=== PATIENT | female | born 1960 | race Caucasian/White ===

== ENCOUNTER 2023-11-01 15:27 | Inpatient (IN) | payer MEDICARE, SELFPAY ==
--- NOTE | ~2023-11-01 | XR_ITS ---
EXAMINATION: XR CHEST CLINICAL INFORMATION: Severe cough COMPARISON: None available. TECHNIQUE: 2 views of the chest were obtained. FINDINGS: The lungs are well expanded. There is prominence of the interstitial markings. Question of slight increased opacity at the right lung base consistent with atelectasis and/or pneumonia. No pleural effusion. The cardiomediastinal silhouette is within normal limits. Calcification of the thoracic aorta is indicative of atherosclerotic disease. No acute osseous abnormality. Cortical defect in the left humeral head is noted possibly from prior dislocation. XR/XR chest 2V IMPRESSION: Right lower lobe atelectasis and/or pneumonia. Follow-up to resolution is suggested.
[2023-11-01 16:00] VITALS: BP 132/71; PULSE 76; RESP 18; TEMP 36.7; O2SAT 94
[2023-11-01 16:22] VITALS: BMI 28.4
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
--- NOTE | 2023-11-01 17:59 | P.CONHOSP_ITS ---
History of Present Illness Data of Consult Service Date: 11/01/23 Requesting physician: Keaton Bravo Primary Care Provider: Unknown Physician HPI Reason for consult: medical H&P 63-year-old female with history of hyperlipidemia, COPD, mood disorder, hypertension admitted to geriatric psychiatry consult placed hospitalist service for medical H&P. The patient arrives from [facility] in [place]. The patient reports a chronic cough with white sputum production but denies any sob, wheezing, chest pain. No increase in albuterol usage. Was admitted to [facility] several months ago after being found hypoxic to 87% on RA by pcp and was discharged on home O2. Reports since then has been feeling well. Continues smoking about 1 pack cigarettes per day, attributes this to increased stress. Does not want NRT while in the hospital. NO etoh or illicit drug use. Has no other complaints. Review of Systems Review of Systems: General: No fevers, malaise, unintentional weight loss HEENT: No blurred vision, diplopia. No sore throat, nasal congestion, rhinorrhea, sinus pain, ear pain Cardiovascular: No chest pain, palpitations, or leg edema Respiratory: +chronic cough. No shortness of breath, wheezing GI: No abdominal pain, nausea, vomiting, diarrhea, constipation, melena, hematochezia : No dysuria, hematuria, increased urinary frequency, decreased urinary output MSK: No myalgia, back pain Neuro: No headaches, weakness, paresthesias Skin: No rashes or lesions PMFSH Medical History Chronic hypoxemic respiratory failure Smoker HTN (hypertension) COPD (chronic obstructive pulmonary disease) Social History Household Members: Other Housing: Apartment Housing Other:: handicap access and elderly Do you presently have visiting nurse or other home services: Yes Patient Tobacco Use Status: Current everyday Tobacco user Tobacco use type: Cigarette Cigarette Packs Per Day: 1 Cigarettes Per Day: 20.0 Smoked in Last 30 Days: Yes Patient Interested in Nicotine Replacement: No Patient Given Instructions on How to Stop Smoking: Yes Date Education Initiated: 11/01/23 Second Hand Smoke Exposure: No Use of substances other than those prescribed or required for medical reasons: No Currently Displaying Signs/Symptoms of Drug Intoxication Withdrawal: No Any prior treatment program specific to substance use: No Have you been hit, kicked, punched, or otherwise hurt by someone within the past year? If so, by whom?: No Do you feel safe in your current relationship?: No Current Relationship Is there a partner from a previous relationship who is making you feel unsafe now?: No Are you made to feel afraid or neglected: No Advance Directives: No Advance Directives Information Provided: No Do you have thoughts of harming others: None Do you have a plan to hurt others: No Plan Recently lost weight without trying: No Eating poorly because of decreased appetite: No Nutrition Risks: No Nutritional Risk Patient : No : No Poor oral hygiene: No Meds Allergies Allergy/AdvReac Type Severity Reaction Status Date / Time amoxicillin Allergy Mild Diarrhea Verified 11/01/23 16:18 azithromycin Allergy Diarrhea Verified 11/01/23 16:19 propranolol Allergy Itching Verified 11/01/23 16:22 [email or web address] Allergy Itching Verified 11/01/23 16:22 Active Medications: Current Medications Acetaminophen (Acetaminophen 325 Mg Tablet) 650 mg PO Q6H PRN PRN Reason: Headache/Pain Mild Scale (1-3) Al Hydroxide/Mg Hydroxide (Magnesium Hydrox/Alum Hydrox 30 Ml Oral.Susp) 30 ml PO Q6H PRN PRN Reason: Heartburn/Nausea Magnesium Hydroxide (Milk Of Magnesia 30 Ml Oral.Susp) 30 ml PO DAILY PRN PRN Reason: Constipation Trazodone HCl (Trazodone Hcl 50 Mg Tablet) 50 mg PO BEDTIME MRX1 PRN PRN Reason: Insomnia Home Medications Medication Instructions Recorded Confirmed Last Taken Type aripiprazole 10 mg tablet (Abilify) 10 mg PO DAILY 11/01/23 11/01/23 Unknown History aspirin 81 mg tablet,delayed 81 mg PO DAILY 11/01/23 11/01/23 Unknown History release (Enteric Coated Aspirin) atorvastatin 10 mg tablet 10 mg PO DAILY 11/01/23 11/01/23 Unknown History budesonide 180 mcg/actuation 2 inh inhalation BID 11/01/23 11/01/23 Unknown History breath activated powder inhaler (Pulmicort Flexhaler) clonazepam 0.5 mg tablet 0.5 mg PO BID 11/01/23 11/01/23 Unknown History deutetrabenazine 6 mg PO DAILY 11/01/23 11/01/23 Unknown History fluphenazine HCl 10 mg tablet 20 mg PO BEDTIME 11/01/23 11/01/23 Unknown History ipratropium-albuterol 1 puff inhalation Q6-8H PRN 11/01/23 11/01/23 Unknown History Shortness Of Breath lacosamide 200 mg tablet 200 mg PO DAILY 11/01/23 11/01/23 Unknown History loratadine 10 mg tablet 10 mg PO DAILY PRN Allergy Symptoms 11/01/23 11/01/23 Unknown History melatonin 3 mg PO BEDTIME 11/01/23 11/01/23 Unknown History multivitamin 1 tab PO DAILY 11/01/23 11/01/23 Unknown History valsartan 80 mg tablet 80 mg PO DAILY 11/01/23 11/01/23 Unknown History venlafaxine 75 mg tablet 75 mg PO BID 11/01/23 11/01/23 Unknown History Physical Exam Vital Signs and Narrative: Vital Signs: Last Vital Signs Temp 98.1 F 11/01/23 16:00 Pulse 76 11/01/23 16:00 Resp 18 11/01/23 16:00 BP 132/71 11/01/23 16:00 Pulse Ox 94 11/01/23 16:00 O2 Del Method Room Air 11/01/23 16:00 BMI result Body Mass Index 28.4 Constitutional - Awake and Alert, No apparent distress Eyes - PERRLA, EOMI Cardiovascular - S1S2, RRR, No edema Respiratory - Normal lung expansion, Normal respiratory effort, No respiratory distress on 2L O2, CTA bilaterally Gastrointestinal - NT / ND; +BS; No rebound or guarding Extremities - no calf tenderness bilaterally, no swelling Musculoskeletal - Normal inspection, normal ROM Skin - Warm/Dry Neurological - Alert & oriented x3, CN II-XII in tact, 5/5 strength BUE and BLE Psychological - Appropriate affect Assessment and Plan (1) Routine medical exam: Status: Acute Plan 63-year-old female with history of hyperlipidemia, COPD on 2L supplemental O2 at baseline, mood disorder, hypertension admitted to geriatric psychiatry consult placed hospitalist service for medical H&P. #Schizophrenia/mood disorder -plan per psychiatry #HTN -bp reasonably controlled. continue valsartan #Chronic cough -cxr pending. Low suspicion for infectious etiology given chronicity of cough. Sputum production unchanged from baseline. Afebrile -guaifenesin prn #COPD with chronic hypoxemic respiratory failure -no acute exacerbation -continue maintenance inhalers, albuterol prn -continue 2L home O2 #HLD -continue statin Thank you for allowing me to participate in this consult. Signing off at this time. Please do not hesitate to call for further questions or for any acute medical issues that may arise
[2023-11-01 18:00] VITALS: BP 131/78; PULSE 69; RESP 17; TEMP 36.4; O2SAT 98
[2023-11-01] MEDS: Budesonide 180 MCG AER.POW.BA 2 PUFF INHALE (20:30)
[2023-11-01] MEDS: Melatonin 3 MG TABLET PO (20:36)
[2023-11-01] MEDS: Venlafaxine HCL 25 MG TABLET 75 MG PO (20:36)
[2023-11-01] MEDS: clonazePAM 0.5 MG TABLET PO (20:37)
[2023-11-01] MEDS: fluPHENAZine HCl 5 MG TABLET 20 MG PO (21:26)
[2023-11-02 06:00] VITALS: BP 132/68; PULSE 73; RESP 14; TEMP 36.4; O2SAT 97
[2023-11-02 07:00] VITALS: BMI 29.2
[2023-11-02] MEDS: Budesonide 180 MCG AER.POW.BA 2 PUFF INHALE ×2 (08:18→20:55)
[2023-11-02] MEDS: Venlafaxine HCL 25 MG TABLET 75 MG PO (08:18)
[2023-11-02] MEDS: Multivitamin TABLET 1 TAB PO (08:19)
[2023-11-02] MEDS: clonazePAM 0.5 MG TABLET PO ×2 (08:19→20:57)
[2023-11-02] MEDS: Aspirin Enteric Coated 81 MG TABLET.DR PO (08:19)
[2023-11-02] MEDS: Valsartan 80 MG TABLET PO (08:19)
[2023-11-02] MEDS: ARIPiprazole 10 MG TABLET PO (08:19)
[2023-11-02] MEDS: Atorvastatin Calcium 10 MG TABLET PO (08:19)
[2023-11-02 09:02] LABS: Estimated Average Glucose 111 mg/dL; Hemoglobin A1c % 5.5 % (<6.0)
[2023-11-02 09:15] LABS: Alanine Aminotransferase 12 U/L (0-31); Albumin Level 3.5 g/dL (3.5-5.0); Alkaline Phosphatase 91 U/L (39-117); Anion Gap 11 (12-20); Aspartate Amino Transferase 19 U/L (5-31); Bilirubin Total 0.2 mg/dL (0.0-1.0); Blood Urea Nitrogen 16 mg/dL (9-16); Calcium 9.8 mg/dL (8.4-10.2); Carbon Dioxide 37 mmol/L (22-29); Chloride 99 mmol/L (96-108); Cholesterol 168 mg/dL (<200); Creatinine Clr Calc Pharmacy 58.1; Estimated Glomerular Filt Rate > 60; Glucose Fasting 149 mg/dL (60-99); HDL Cholesterol 59 mg/dL (>40); LDL Cholesterol Calculated 97 mg/dL (<100); Potassium 4.9 mmol/L (3.3-5.1); Sodium 142 mmol/L (135-145); Total Protein 6.7 g/dL (6.5-8.0); Triglycerides 63 mg/dL (<150)
[2023-11-02 09:28] LABS: Thyroid Stimulating Hormone 1.21 uIU/mL (0.32-4.0)
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
[2023-11-02 12:55] LABS: Folate 9.7 ng/mL (> or = 4.0); Vitamin B12 588 pg/mL (200-900)
[2023-11-02 13:00] VITALS: BMI 29.2
[2023-11-02 18:00] VITALS: BP 121/72; PULSE 70; RESP 18; TEMP 36.4; O2SAT 98
[2023-11-02] MEDS: Melatonin 3 MG TABLET PO (20:56)
[2023-11-02] MEDS: fluPHENAZine HCl 5 MG TABLET 20 MG PO (20:56)
[2023-11-03 08:00] VITALS: BP 133/71; PULSE 83; RESP 18; TEMP 36.7; O2SAT 94
[2023-11-03] MEDS: Budesonide 180 MCG AER.POW.BA 2 PUFF INHALE ×2 (08:35→21:03)
[2023-11-03] MEDS: Multivitamin TABLET 1 TAB PO (08:36)
[2023-11-03] MEDS: Lacosamide 100 MG TABLET 200 MG PO (08:36)
[2023-11-03] MEDS: ARIPiprazole 10 MG TABLET PO (08:36)
[2023-11-03] MEDS: Atorvastatin Calcium 10 MG TABLET PO (08:36)
[2023-11-03] MEDS: Valsartan 80 MG TABLET PO (08:36)
[2023-11-03] MEDS: Venlafaxine HCL 25 MG TABLET 75 MG PO (08:36)
[2023-11-03] MEDS: Aspirin Enteric Coated 81 MG TABLET.DR PO (08:36)
[2023-11-03] MEDS: clonazePAM 0.5 MG TABLET PO ×2 (08:37→21:06)
--- NOTE | 2023-11-03 16:42 | HO.PSYCHPN ---
Subjective Subjective Date of Service: 11/03/23 Reason For Visit: Schizophrenia Subjective Notes: Conditional Voluntary Interim History: Pt reports feeling well. She reports she slept through the night. She reports she has ont heard mother nature as much. She continues to talk about her neighbors, but again states she is not as worried because mother nature is protecting her along with God. No disruptive behaviors. Taking medications as prescribed. Medication Compliance: Yes Review of Systems Review of Systems Pt denies chest pain. She is on oxygen, no SOB or wheezing Denies constipation or loose stools. No abdominal pain. No changes in vision. Mental Status Exam Mental Status Exam Narrative: Appearance: wearing casual clothing, good hygiene, in NAD Behavior: cooperative and friendly Psychomotor: no agitation or retardation noted. resting tremor right hand more pronounce, no overt perioral movements. Speech: clear, normal rate/rhythm/volume, spontaneous TP: tangential at times TC: concern about her neighbors trying to hurt her but with the reassurance that mother nature protects her. Mood: good Affect:congruent, brightens up at times SI: denies HI: none VH/AH: hearing voices of mother nature Delusions: paranoid delusions Insight/judgment: impaired x2 Memory/cog: alert, oriented x 3. Diagnostics Vital Signs (24Hr): Vital Signs - 24 hr 11/02/23 18:00 Temperature 97.5 F Pulse Rate 70 Respiratory Rate 18 Blood Pressure 121/72 Pulse Oximetry 98 Oxygen Delivery Method Room Air BMI result Body Mass Index 29.2 Labs 11/02/23 08:48 Labs: Laboratory Results - last 48 hr 11/02/23 08:48 Sodium 142 Potassium 4.9 Chloride 99 Carbon Dioxide 37 H Anion Gap 11 L BUN 16 Creatinine 0.76 Estim Creat Clear Calc 58.1 Estimated GFR > 60 Fasting Glucose 149 H Estimat Average Glucose 111 Hemoglobin A1c % 5.5 Calcium 9.8 Total Bilirubin 0.2 AST 19 ALT 12 Alkaline Phosphatase 91 Total Protein 6.7 Albumin 3.5 Triglycerides 63 Cholesterol 168 LDL Cholesterol, Calc 97 HDL Cholesterol 59 Vitamin B12 588 Folate 9.7 TSH 1.21 Imaging Radiology Impressions: ITS Impressions Chest X-Ray 11/01/23 18:22 IMPRESSION: Right lower lobe atelectasis and/or pneumonia. Follow-up to resolution is suggested. Medications Medications Current Medications Acetaminophen (Acetaminophen 325 Mg Tablet) 650 mg PO Q6H PRN PRN Reason: Headache/Pain Mild Scale (1-3) Al Hydroxide/Mg Hydroxide (Magnesium Hydrox/Alum Hydrox 30 Ml Oral.Susp) 30 ml PO Q6H PRN PRN Reason: Heartburn/Nausea Albuterol/Ipratropium (Albuterol/Iprat 2.5/0.5mg 3 Ml Ampul.Neb) 3 ml INHALE Q6H PRN PRN Reason: shortness of breath Aripiprazole (Aripiprazole 10 Mg Tablet) 10 mg PO DAILY [facility] Last Admin: 11/03/23 08:36 Dose: 10 mg Aspirin (Aspirin Enteric Coated 81 Mg Tablet.Dr) 81 mg PO DAILY [facility] Last Admin: 11/03/23 08:36 Dose: 81 mg Atorvastatin Calcium (Atorvastatin Calcium 10 Mg Tablet) 10 mg PO DAILY [facility] Last Admin: 11/03/23 08:36 Dose: 10 mg Budesonide (Budesonide 180 Mcg Aer.Pow.Ba) 2 puff INHALE RBID [facility] Last Admin: 11/03/23 08:35 Dose: 2 puff Clonazepam (Clonazepam 0.5 Mg Tablet) 0.5 mg PO BID [facility] Last Admin: 11/03/23 08:37 Dose: 0.5 mg Fluphenazine HCl (Fluphenazine Hcl 5 Mg Tablet) 20 mg PO BEDTIME [facility] Last Admin: 11/02/23 20:56 Dose: 20 mg Lacosamide (Lacosamide 100 Mg Tablet) 200 mg PO DAILY [facility] Last Admin: 11/03/23 08:36 Dose: 200 mg Loratadine (Loratadine 10 Mg Tablet) 10 mg PO DAILY PRN PRN Reason: allergy sx Magnesium Hydroxide (Milk Of Magnesia 30 Ml Oral.Susp) 30 ml PO DAILY PRN PRN Reason: Constipation Melatonin (Melatonin 3 Mg Tablet) 3 mg PO BEDTIME [facility] Last Admin: 11/02/23 20:56 Dose: 3 mg Multivitamins/Vitamin C (Multivitamin Tablet) 1 tab PO DAILY [facility] Last Admin: 11/03/23 08:36 Dose: 1 tab Non-Formulary Medication (Deutetrabenazine) 6 mg PO DAILY [facility] Trazodone HCl (Trazodone Hcl 50 Mg Tablet) 50 mg PO BEDTIME MRX1 PRN PRN Reason: Insomnia Valsartan (Valsartan 80 Mg Tablet) 80 mg PO DAILY [facility]; Protocol Last Admin: 11/03/23 08:36 Dose: 80 mg Venlafaxine HCl (Venlafaxine Hcl 25 Mg Tablet) 75 mg PO DAILY [facility] Last Admin: 11/03/23 08:36 Dose: 75 mg Allergies Allergies Allergy/AdvReac Type Severity Reaction Status Date / Time amoxicillin Allergy Mild Diarrhea Verified 11/01/23 16:18 azithromycin Allergy Diarrhea Verified 11/01/23 16:19 propranolol Allergy Itching Verified 11/01/23 16:22 [email or web address] Allergy Itching Verified 11/01/23 16:22 Assessment & Plan Assessment & Plan (1) Schizophrenia, paranoid: Status: Acute Code(s): F20.0 - Paranoid schizophrenia Plan Ms. Jimenez is a 63 year-old woman with hx of schizophrenia who was brought via EMS to [facility] due to increase paranoid delusions in the past few months. She has not been aggressive nor suicidal. According to [facility] she takes medications consistently but not connected with psychiatrist as she stopped seeing her as pt reports psychiatrist did not help her stop smoking. She was recently started on venlafaxine by her PCP, who is also prescribing prolixin and abilify. We discussed tapering off venlafaxine as it worsens psychosis and delusions. Continue prolixin and abilify. PLAN 1. Taper off venlafaxine- currently on 75mg po daily, will decrease in 3-4 days to 37.5mg po 2-3 days, then stop. 2. continue prolixin 20mg po daily- may split dose in two. 3. pending collateral information. Reason for continued inpatient stay Substantial Risk for: inability to function Time Spent With Patient Time: Total time managing care of this patient today ____ minutes.
[2023-11-03 18:00] VITALS: BP 126/65; PULSE 74; RESP 18; TEMP 36.2; O2SAT 97
[2023-11-03] MEDS: Melatonin 3 MG TABLET PO (21:06)
[2023-11-03] MEDS: fluPHENAZine HCl 5 MG TABLET 20 MG PO (21:06)
[2023-11-03] MEDS: traZODone HCL 50 MG TABLET PO (21:07)
[2023-11-04 08:56] VITALS: BP 116/59; PULSE 62; RESP 17; O2SAT 93
[2023-11-04] MEDS: Lacosamide 100 MG TABLET 200 MG PO (09:23)
[2023-11-04] MEDS: Aspirin Enteric Coated 81 MG TABLET.DR PO (09:23)
[2023-11-04] MEDS: Valsartan 80 MG TABLET PO (09:23)
[2023-11-04] MEDS: Atorvastatin Calcium 10 MG TABLET PO (09:23)
[2023-11-04] MEDS: Multivitamin TABLET 1 TAB PO (09:23)
[2023-11-04] MEDS: clonazePAM 0.5 MG TABLET PO (09:23)
[2023-11-04] MEDS: Venlafaxine HCL 25 MG TABLET 75 MG PO (09:24)
[2023-11-04] MEDS: ARIPiprazole 10 MG TABLET PO (09:24)
[2023-11-04] MEDS: Budesonide 180 MCG AER.POW.BA 2 PUFF INHALE ×2 (09:28→21:01)
--- NOTE | 2023-11-04 10:07 | HO.PSYCHPN ---
Subjective Subjective Date of Service: 11/04/23 Reason For Visit: Schizophrenia Subjective Notes: Conditional Voluntary Interim History: Pt has been sleeping through the night. She takes medications as prescribed. She reports not hearing mother nature as much which is the voice that typically will have paranoid delusions. She reports feeling safe here. She had chest XR on day of admission due to ongoing cough. Chest XR showed atelectasis or pneumonia->correlating clinically she is is afebrile, cough has significantly decrease and seems more chronic, no leukocytosis. O2sat stable on 2NC at baseline. scheduled mucinex and encourage fluids, may benefit from incentive spirometry. Review of Systems Review of Systems General: No fevers, malaise, unintentional weight loss HEENT: No blurred vision, diplopia. No sore throat, nasal congestion, rhinorrhea, sinus pain, ear pain Cardiovascular: No chest pain, palpitations, or leg edema Respiratory: +chronic cough. No shortness of breath, wheezing GI: No abdominal pain, nausea, vomiting, diarrhea, constipation, melena, hematochezia : No dysuria, hematuria, increased urinary frequency, decreased urinary output MSK: No myalgia, back pain Neuro: No headaches, weakness, paresthesias Skin: No rashes or lesions Mental Status Exam Mental Status Exam Narrative: Appearance: wearing casual clothing, good hygiene, in NAD Behavior: cooperative and friendly Psychomotor: no agitation or retardation noted. resting tremor right hand more pronounce, no overt perioral movements. Speech: clear, normal rate/rhythm/volume, spontaneous TP: tangential at times TC: concern about her neighbors trying to hurt her but with the reassurance that mother nature protects her. Mood: good Affect:congruent, brightens up at times SI: denies HI: none VH/AH: hearing voices of mother nature Delusions: paranoid delusions Insight/judgment: impaired x2 Memory/cog: alert, oriented x 3. Diagnostics Vital Signs (24Hr): Vital Signs - 24 hr 11/03/23 18:00 11/04/23 08:56 Temperature 97.1 F Pulse Rate 74 62 Respiratory Rate 18 17 Blood Pressure 126/65 116/59 L Pulse Oximetry 97 93 Oxygen Delivery Method Room Air Nasal Cannula BMI result Body Mass Index 29.2 Labs 11/02/23 08:48 Labs: Laboratory Results - last 48 hr 11/02/23 08:48 Vitamin B12 588 Folate 9.7 Imaging Radiology Impressions: ITS Impressions Chest X-Ray 11/01/23 18:22 IMPRESSION: Right lower lobe atelectasis and/or pneumonia. Follow-up to resolution is suggested. Medications Medications Current Medications Acetaminophen (Acetaminophen 325 Mg Tablet) 650 mg PO Q6H PRN PRN Reason: Headache/Pain Mild Scale (1-3) Al Hydroxide/Mg Hydroxide (Magnesium Hydrox/Alum Hydrox 30 Ml Oral.Susp) 30 ml PO Q6H PRN PRN Reason: Heartburn/Nausea Albuterol/Ipratropium (Albuterol/Iprat 2.5/0.5mg 3 Ml Ampul.Neb) 3 ml INHALE Q6H PRN PRN Reason: shortness of breath Aripiprazole (Aripiprazole 10 Mg Tablet) 10 mg PO DAILY [facility] Last Admin: 11/04/23 09:24 Dose: 10 mg Aspirin (Aspirin Enteric Coated 81 Mg Tablet.) 81 mg PO DAILY [facility] Last Admin: 11/04/23 09:23 Dose: 81 mg Atorvastatin Calcium (Atorvastatin Calcium 10 Mg Tablet) 10 mg PO DAILY [facility] Last Admin: 11/04/23 09:23 Dose: 10 mg Budesonide (Budesonide 180 Mcg Aer.Pow.Ba) 2 puff INHALE RBID [facility] Last Admin: 11/04/23 09:28 Dose: 2 puff Clonazepam (Clonazepam 0.5 Mg Tablet) 0.5 mg PO BID [facility] Last Admin: 11/04/23 09:23 Dose: 0.5 mg Fluphenazine HCl (Fluphenazine Hcl 5 Mg Tablet) 20 mg PO BEDTIME [facility] Last Admin: 11/03/23 21:06 Dose: 20 mg Lacosamide (Lacosamide 100 Mg Tablet) 200 mg PO DAILY [facility] Last Admin: 11/04/23 09:23 Dose: 200 mg Loratadine (Loratadine 10 Mg Tablet) 10 mg PO DAILY PRN PRN Reason: allergy sx Magnesium Hydroxide (Milk Of Magnesia 30 Ml Oral.Susp) 30 ml PO DAILY PRN PRN Reason: Constipation Melatonin (Melatonin 3 Mg Tablet) 3 mg PO BEDTIME [facility] Last Admin: 11/03/23 21:06 Dose: 3 mg Multivitamins/Vitamin C (Multivitamin Tablet) 1 tab PO DAILY [facility] Last Admin: 11/04/23 09:23 Dose: 1 tab Non-Formulary Medication (Deutetrabenazine) 6 mg PO DAILY [facility] Trazodone HCl (Trazodone Hcl 50 Mg Tablet) 50 mg PO BEDTIME MRX1 PRN PRN Reason: Insomnia Last Admin: 11/03/23 21:07 Dose: 50 mg Valsartan (Valsartan 80 Mg Tablet) 80 mg PO DAILY [facility]; Protocol Last Admin: 11/04/23 09:23 Dose: 80 mg Venlafaxine HCl (Venlafaxine Hcl 25 Mg Tablet) 75 mg PO DAILY [facility] Last Admin: 11/04/23 09:24 Dose: 75 mg Allergies Allergies Allergy/AdvReac Type Severity Reaction Status Date / Time amoxicillin Allergy Mild Diarrhea Verified 11/01/23 16:18 azithromycin Allergy Diarrhea Verified 11/01/23 16:19 propranolol Allergy Itching Verified 11/01/23 16:22 [email or web address] Allergy Itching Verified 11/01/23 16:22 Assessment & Plan Assessment & Plan (1) Schizophrenia, paranoid: Status: Acute Code(s): F20.0 - Paranoid schizophrenia Plan Ms. Jimenez is a 62 year-old woman with hx of schizophrenia paranoid type, admitted for exacerbation of delusions and psychosis. Plan to taper off venlafaxine as it worsens psychosis and delusions. Pt already on high dose of prolixin. No significant exacerbation of movement disorder symptoms without austedo. She does have resting tremor, minimal perioral involuntary movements. PLAN 1. continue taper off venlafaxine. divide dose of prolixin to 10mg po BID, instead of 20mg po qhs. may consider d/c abilify. Reason for continued inpatient stay Substantial Risk for: inability to function Time Spent With Patient Time: Total time managing care of this patient today ____ minutes.
[2023-11-04] MEDS: fluPHENAZine HCl 5 MG TABLET 10 MG PO ×2 (15:49→21:03)
[2023-11-04] MEDS: guaiFENesin LA 600 MG TAB.ER.12H PO ×2 (15:49→21:03)
[2023-11-04 18:00] VITALS: BP 112/58; PULSE 65; RESP 18; TEMP 36.4; O2SAT 97
[2023-11-04] MEDS: traZODone HCL 50 MG TABLET PO (21:03)
[2023-11-04] MEDS: Melatonin 3 MG TABLET PO (21:03)
[2023-11-05 08:41] VITALS: BP 115/64; PULSE 72; RESP 17; TEMP 36.7; O2SAT 98
[2023-11-05] MEDS: Lacosamide 100 MG TABLET 200 MG PO (08:50)
[2023-11-05] MEDS: Multivitamin TABLET 1 TAB PO (08:51)
[2023-11-05] MEDS: Aspirin Enteric Coated 81 MG TABLET.DR PO (08:51)
[2023-11-05] MEDS: Venlafaxine HCL 25 MG TABLET 37.5 MG PO (08:51)
[2023-11-05] MEDS: guaiFENesin LA 600 MG TAB.ER.12H PO ×2 (08:51→21:05)
[2023-11-05] MEDS: Valsartan 80 MG TABLET PO (08:51)
[2023-11-05] MEDS: Atorvastatin Calcium 10 MG TABLET PO (08:52)
[2023-11-05] MEDS: Budesonide 180 MCG AER.POW.BA 2 PUFF INHALE ×2 (08:55→21:06)
[2023-11-05] MEDS: fluPHENAZine HCl 5 MG TABLET 10 MG PO ×2 (10:09→21:05)
--- NOTE | 2023-11-05 13:37 | HO.PSYCHPN ---
Subjective Subjective Date of Service: 11/05/23 Reason For Visit: Schizophrenia Subjective Notes: Conditional Voluntary Interim History: Pt has been sleeping through the night. She reports not hearing mother nature for few days now. She denies SI/HI. She has been visible on the unit, pleasant and social on approach. No behavioral concerns. She is taking medications as prescribed. She had chest XR on day of admission due to ongoing cough. Chest XR showed atelectasis or pneumonia->correlating clinically she is is afebrile, cough has significantly decrease and seems more chronic, no leukocytosis--> low suspicion for pneumonia at this time. O2sat stable on 2NC at baseline. scheduled mucinex and encourage fluids, may benefit from incentive spirometry. Review of Systems Review of Systems Pt denies chest pain. She is on oxygen, no SOB or wheezing Denies constipation or loose stools. No abdominal pain. No changes in vision. Mental Status Exam Mental Status Exam Narrative: Appearance: wearing casual clothing, good hygiene, in NAD Behavior: cooperative and friendly Psychomotor: no agitation or retardation noted. resting tremor right hand more pronounce, no overt perioral movements. Speech: clear, normal rate/rhythm/volume, spontaneous TP: tangential at times TC: concern about her neighbors trying to hurt her but with the reassurance that mother nature protects her. Mood: good Affect:congruent, brightens up at times SI: denies HI: none VH/AH: hearing voices of mother nature Delusions: paranoid delusions Insight/judgment: impaired x2 Memory/cog: alert, oriented x 3. Diagnostics Vital Signs (24Hr): Vital Signs - 24 hr 11/04/23 18:00 11/05/23 08:41 Temperature 97.6 F 98.1 F Pulse Rate 65 72 Respiratory Rate 18 17 Blood Pressure 112/58 L 115/64 Pulse Oximetry 97 98 Oxygen Delivery Method Room Air Nasal Cannula BMI result Body Mass Index 29.2 Labs 11/02/23 08:48 Imaging Radiology Impressions: ITS Impressions Chest X-Ray 11/01/23 18:22 IMPRESSION: Right lower lobe atelectasis and/or pneumonia. Follow-up to resolution is suggested. Medications Medications Current Medications Acetaminophen (Acetaminophen 325 Mg Tablet) 650 mg PO Q6H PRN PRN Reason: Headache/Pain Mild Scale (1-3) Al Hydroxide/Mg Hydroxide (Magnesium Hydrox/Alum Hydrox 30 Ml Oral.Susp) 30 ml PO Q6H PRN PRN Reason: Heartburn/Nausea Albuterol/Ipratropium (Albuterol/Iprat 2.5/0.5mg 3 Ml Ampul.Neb) 3 ml INHALE Q6H PRN PRN Reason: shortness of breath Aspirin (Aspirin Enteric Coated 81 Mg Tablet.Dr) 81 mg PO DAILY [facility] Last Admin: 11/05/23 08:51 Dose: 81 mg Atorvastatin Calcium (Atorvastatin Calcium 10 Mg Tablet) 10 mg PO DAILY [facility] Last Admin: 11/05/23 08:52 Dose: 10 mg Budesonide (Budesonide 180 Mcg Aer.Pow.Ba) 2 puff INHALE RBID [facility] Last Admin: 11/05/23 08:55 Dose: 2 puff Clonazepam (Clonazepam 0.5 Mg Tablet) 0.5 mg PO BID PRN PRN Reason: moderate, anxiety Fluphenazine HCl (Fluphenazine Hcl 5 Mg Tablet) 10 mg PO BID [facility] Last Admin: 11/05/23 10:09 Dose: 10 mg Guaifenesin (Guaifenesin La 600 Mg Tab.Er.12h) 600 mg PO BID [facility] Last Admin: 11/05/23 08:51 Dose: 600 mg Lacosamide (Lacosamide 100 Mg Tablet) 200 mg PO DAILY [facility] Last Admin: 11/05/23 08:50 Dose: 200 mg Loratadine (Loratadine 10 Mg Tablet) 10 mg PO DAILY PRN PRN Reason: allergy sx Magnesium Hydroxide (Milk Of Magnesia 30 Ml Oral.Susp) 30 ml PO DAILY PRN PRN Reason: Constipation Melatonin (Melatonin 3 Mg Tablet) 3 mg PO BEDTIME [facility] Last Admin: 11/04/23 21:03 Dose: 3 mg Multivitamins/Vitamin C (Multivitamin Tablet) 1 tab PO DAILY [facility] Last Admin: 11/05/23 08:51 Dose: 1 tab Non-Formulary Medication (Deutetrabenazine) 6 mg PO DAILY [facility] Trazodone HCl (Trazodone Hcl 50 Mg Tablet) 50 mg PO BEDTIME MRX1 PRN PRN Reason: Insomnia Last Admin: 11/04/23 21:03 Dose: 50 mg Valsartan (Valsartan 80 Mg Tablet) 80 mg PO DAILY [facility]; Protocol Last Admin: 11/05/23 08:51 Dose: 80 mg Venlafaxine HCl (Venlafaxine Hcl 25 Mg Tablet) 37.5 mg PO DAILY [facility] Last Admin: 11/05/23 08:51 Dose: 37.5 mg Allergies Allergies Allergy/AdvReac Type Severity Reaction Status Date / Time amoxicillin Allergy Mild Diarrhea Verified 11/01/23 16:18 azithromycin Allergy Diarrhea Verified 11/01/23 16:19 propranolol Allergy Itching Verified 11/01/23 16:22 [email or web address] Allergy Itching Verified 11/01/23 16:22 Assessment & Plan Assessment & Plan (1) Schizophrenia, paranoid: Status: Acute Code(s): F20.0 - Paranoid schizophrenia Plan Ms. Jimenez is a 62 year-old woman with hx of schizophrenia paranoid type, admitted for exacerbation of delusions and psychosis. Plan to taper off venlafaxine as it worsens psychosis and delusions. Pt already on high dose of prolixin. No significant exacerbation of movement disorder symptoms without austedo. She does have resting tremor, minimal perioral involuntary movements. PLAN 1. continue taper off venlafaxine. divide dose of prolixin to 10mg po BID, instead of 20mg po qhs. may consider d/c abilify. Reason for continued inpatient stay Substantial Risk for: inability to function Time Spent With Patient Time: Total time managing care of this patient today ____ minutes.
[2023-11-05 18:00] VITALS: BP 109/56; PULSE 93; RESP 18; TEMP 36.6; O2SAT 93
[2023-11-05] MEDS: Melatonin 3 MG TABLET PO (21:03)
[2023-11-05] MEDS: traZODone HCL 50 MG TABLET PO (21:05)
[2023-11-06 08:06] VITALS: BP 119/57; PULSE 63; RESP 16; TEMP 36.4; O2SAT 98
[2023-11-06] MEDS: guaiFENesin LA 600 MG TAB.ER.12H PO ×2 (08:39→19:58)
[2023-11-06] MEDS: Aspirin Enteric Coated 81 MG TABLET.DR PO (08:39)
[2023-11-06] MEDS: Venlafaxine HCL 25 MG TABLET 37.5 MG PO (08:39)
[2023-11-06] MEDS: fluPHENAZine HCl 5 MG TABLET 10 MG PO ×2 (08:39→19:57)
[2023-11-06] MEDS: Valsartan 80 MG TABLET PO (08:40)
[2023-11-06] MEDS: Lacosamide 100 MG TABLET 200 MG PO (08:40)
[2023-11-06] MEDS: Atorvastatin Calcium 10 MG TABLET PO (08:40)
[2023-11-06] MEDS: clonazePAM 0.5 MG TABLET PO (08:40)
[2023-11-06] MEDS: Multivitamin TABLET 1 TAB PO (08:40)
[2023-11-06] MEDS: Budesonide 180 MCG AER.POW.BA 2 PUFF INHALE ×2 (08:40→19:57)
[2023-11-06] MEDS: Milk of Magnesia 30 ML ORAL.SUSP PO (08:50)
--- NOTE | 2023-11-06 09:21 | PC.NURSE ---
Notified Cheryl Tavarez of bp 119/57 and that diastolic bp has recently been in the 50s. Amara is asymptomatic and Cheryl Tavarez notified.
--- NOTE | 2023-11-06 15:50 | PC.NURSE ---
Reported no BM x 3 days, MOM given and still no BM. Cheryl Tavarez CREW MANAGER notified.
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
[2023-11-06] MEDS: Sennosides/Docusate Sodium TABLET 1 TAB PO ×2 (16:39→19:58)
[2023-11-06 18:00] VITALS: BP 109/63; PULSE 63; RESP 18; TEMP 36.4; O2SAT 99
[2023-11-06] MEDS: Melatonin 3 MG TABLET PO (19:59)
[2023-11-06] MEDS: traZODone HCL 50 MG TABLET PO (19:59)
[2023-11-07 07:55] VITALS: BP 133/70; PULSE 63; RESP 20; TEMP 36.4; O2SAT 95
[2023-11-07] MEDS: Budesonide 180 MCG AER.POW.BA 2 PUFF INHALE ×2 (07:55→21:53)
[2023-11-07] MEDS: Valsartan 80 MG TABLET PO (07:56)
[2023-11-07] MEDS: Aspirin Enteric Coated 81 MG TABLET.DR PO (07:56)
[2023-11-07] MEDS: Venlafaxine HCL 25 MG TABLET 37.5 MG PO (07:57)
[2023-11-07] MEDS: Sennosides/Docusate Sodium TABLET 1 TAB PO ×2 (07:58→21:54)
[2023-11-07] MEDS: guaiFENesin LA 600 MG TAB.ER.12H PO ×2 (07:58→21:54)
[2023-11-07] MEDS: fluPHENAZine HCl 5 MG TABLET 10 MG PO ×2 (07:59→21:54)
[2023-11-07] MEDS: Multivitamin TABLET 1 TAB PO (07:59)
[2023-11-07] MEDS: Atorvastatin Calcium 10 MG TABLET PO (07:59)
[2023-11-07] MEDS: Lacosamide 100 MG TABLET 200 MG PO (07:59)
--- NOTE | 2023-11-07 10:04 | HO.PSYCHPN ---
Subjective Subjective Date of Service: 11/07/23 Reason For Visit: Schizophrenia Subjective Notes: Conditional Voluntary Interim History: Pt slept through the night. She has been visible on the unit and social with select peers. It does seem like she is hearing less voices but still has paranoid ideas of neighbors trying to hurt her or fear that if she return will be same situation. Pt is very pleasant on approach. No behavioral concerns. She is in agreement to stay few more days here. This leader writer spoke with Janet, who is pt's [id number], we discussed Amara's concerns in terms of paranoid delusions and returning home. We also discussed completing MOCA and ACL to determine underlying neurcognitive disorder. Review of Systems Review of Systems Pt denies chest pain. She is on oxygen, no SOB or wheezing Denies constipation or loose stools. No abdominal pain. No changes in vision. Mental Status Exam Mental Status Exam Narrative: Appearance: wearing casual clothing, good hygiene, in NAD Behavior: cooperative and friendly Psychomotor: no agitation or retardation noted. resting tremor right hand more pronounce, no overt perioral movements. Speech: clear, normal rate/rhythm/volume, spontaneous TP: tangential at times TC: concern about her neighbors trying to hurt her but with the reassurance that mother nature protects her. Mood: good Affect:congruent, brightens up at times SI: denies HI: none VH/AH: hearing voices of mother nature Delusions: paranoid delusions Insight/judgment: impaired x2 Memory/cog: alert, oriented x 3. Diagnostics Vital Signs (24Hr): Vital Signs - 24 hr 11/06/23 18:00 11/07/23 07:55 Temperature 97.5 F 97.5 F Pulse Rate 63 63 Respiratory Rate 18 20 Blood Pressure 109/63 133/70 Pulse Oximetry 99 95 Oxygen Delivery Method Room Air Nasal Cannula Oxygen Flow Rate 2 BMI result Body Mass Index 29.2 Labs 11/02/23 08:48 Imaging Radiology Impressions: ITS Impressions Chest X-Ray 11/01/23 18:22 IMPRESSION: Right lower lobe atelectasis and/or pneumonia. Follow-up to resolution is suggested. Medications Medications Current Medications Acetaminophen (Acetaminophen 325 Mg Tablet) 650 mg PO Q6H PRN PRN Reason: Headache/Pain Mild Scale (1-3) Al Hydroxide/Mg Hydroxide (Magnesium Hydrox/Alum Hydrox 30 Ml Oral.Susp) 30 ml PO Q6H PRN PRN Reason: Heartburn/Nausea Albuterol/Ipratropium (Albuterol/Iprat 2.5/0.5mg 3 Ml Ampul.Neb) 3 ml INHALE Q6H PRN PRN Reason: shortness of breath Aspirin (Aspirin Enteric Coated 81 Mg Tablet.) 81 mg PO DAILY [facility] Last Admin: 11/07/23 07:56 Dose: 81 mg Atorvastatin Calcium (Atorvastatin Calcium 10 Mg Tablet) 10 mg PO DAILY [facility] Last Admin: 11/07/23 07:59 Dose: 10 mg Budesonide (Budesonide 180 Mcg Aer.Pow.Ba) 2 puff INHALE RBID [facility] Last Admin: 11/07/23 07:55 Dose: 2 puff Clonazepam (Clonazepam 0.5 Mg Tablet) 0.5 mg PO BID PRN PRN Reason: moderate, anxiety Last Admin: 11/06/23 08:40 Dose: 0.5 mg Fluphenazine HCl (Fluphenazine Hcl 5 Mg Tablet) 10 mg PO BID [facility] Last Admin: 11/07/23 07:59 Dose: 10 mg Guaifenesin (Guaifenesin La 600 Mg Tab.Er.12h) 600 mg PO BID [facility] Last Admin: 11/07/23 07:58 Dose: 600 mg Lacosamide (Lacosamide 100 Mg Tablet) 200 mg PO DAILY [facility] Last Admin: 11/07/23 07:59 Dose: 200 mg Loratadine (Loratadine 10 Mg Tablet) 10 mg PO DAILY PRN PRN Reason: allergy sx Magnesium Hydroxide (Milk Of Magnesia 30 Ml Oral.Susp) 30 ml PO DAILY PRN PRN Reason: Constipation Last Admin: 11/06/23 08:50 Dose: 30 ml Melatonin (Melatonin 3 Mg Tablet) 3 mg PO BEDTIME [facility] Last Admin: 11/06/23 19:59 Dose: 3 mg Multivitamins/Vitamin C (Multivitamin Tablet) 1 tab PO DAILY [facility] Last Admin: 11/07/23 07:59 Dose: 1 tab Non-Formulary Medication (Deutetrabenazine) 6 mg PO DAILY [facility] Senna/Docusate Sodium (Sennosides/Docusate Sodium Tablet) 1 tab PO BID [facility] Last Admin: 11/07/23 07:58 Dose: 1 tab Trazodone HCl (Trazodone Hcl 50 Mg Tablet) 50 mg PO BEDTIME MRX1 PRN PRN Reason: Insomnia Last Admin: 11/06/23 19:59 Dose: 50 mg Valsartan (Valsartan 80 Mg Tablet) 80 mg PO DAILY [facility]; Protocol Last Admin: 11/07/23 07:56 Dose: 80 mg Venlafaxine HCl (Venlafaxine Hcl 25 Mg Tablet) 37.5 mg PO DAILY [facility] Last Admin: 11/07/23 07:57 Dose: 37.5 mg Allergies Allergies Allergy/AdvReac Type Severity Reaction Status Date / Time amoxicillin Allergy Mild Diarrhea Verified 11/01/23 16:18 azithromycin Allergy Diarrhea Verified 11/01/23 16:19 propranolol Allergy Itching Verified 11/01/23 16:22 [email or web address] Allergy Itching Verified 11/01/23 16:22 Assessment & Plan Assessment & Plan (1) Schizophrenia, paranoid: Status: Acute Code(s): F20.0 - Paranoid schizophrenia Plan Ms. Jimenez is a 63 year-old woman with hx of paranoid schizophrenia who is having increase paranoid delusions, no aggression or suicidality. She does take medications consistently but given that she is currently not connected with psychiatrist and is in need of med adjustments she was admitted voluntarily to the psychiatric unit. We discussed risks, benefits and alternative treatment options, discussed taper off venlafaxine as it will worsen psychosis and delusions. She is on high dose of prolixin 20mg po daily. She apparently has hx of TD, on [place], currently not taking it as it is not on formulary. Noted resting tremor on right hand, some mild perioral involuntary movement. PLAN 1. Admit to S1, CV, 1:1 due to oxygen 2. continue effexor taper. on lower dose now. continue prolixin. Reason for continued inpatient stay Substantial Risk for: inability to function Time Spent With Patient Time: Total time managing care of this patient today ____ minutes.
[2023-11-07 18:00] VITALS: BP 125/60; PULSE 73; RESP 20; TEMP 36.6; O2SAT 95
[2023-11-07] MEDS: Melatonin 3 MG TABLET PO (21:53)
[2023-11-07] MEDS: traZODone HCL 50 MG TABLET PO (21:54)
[2023-11-08 08:11] VITALS: BP 137/62; PULSE 67; RESP 17; TEMP 36.3; O2SAT 98
[2023-11-08] MEDS: Venlafaxine HCL 25 MG TABLET 37.5 MG PO (08:13)
[2023-11-08] MEDS: guaiFENesin LA 600 MG TAB.ER.12H PO ×2 (08:15→21:28)
[2023-11-08] MEDS: Lacosamide 100 MG TABLET 200 MG PO (08:15)
[2023-11-08] MEDS: Valsartan 80 MG TABLET PO (08:15)
[2023-11-08] MEDS: Multivitamin TABLET 1 TAB PO (08:16)
[2023-11-08] MEDS: Atorvastatin Calcium 10 MG TABLET PO (08:16)
[2023-11-08] MEDS: Sennosides/Docusate Sodium TABLET 1 TAB PO ×2 (08:16→21:28)
[2023-11-08] MEDS: Aspirin Enteric Coated 81 MG TABLET.DR PO (08:16)
[2023-11-08] MEDS: fluPHENAZine HCl 5 MG TABLET 10 MG PO ×2 (08:16→21:27)
[2023-11-08] MEDS: Budesonide 180 MCG AER.POW.BA 2 PUFF INHALE ×2 (08:18→21:26)
--- NOTE | 2023-11-08 11:20 | HO.PSYCHPN ---
Subjective Subjective Date of Service: 11/09/23 Reason For Visit: Schizophrenia Subjective Notes: Conditional Voluntary Interim History: Pt reports she feels safe here. She does goes on and on about feeling anxious last night thinking about her neighbors who are evil and trying to harm her. She reports mother nature is not talking to her and she suspects because I'm on vacation, she is letting me rest. She states she thinks [place] the real God, the one that doesn't make mistakes will take care of evil neighbors and then she may be safe back home. She denies SI/HI. She is visible and pleasant. No behavioral concerns. Diagnostics Vital Signs (24Hr): Vital Signs - 24 hr 11/07/23 18:00 11/08/23 08:11 Temperature 97.9 F 97.4 F Pulse Rate 73 67 Respiratory Rate 20 17 Blood Pressure 125/60 137/62 Pulse Oximetry 95 98 Oxygen Delivery Method Room Air Nasal Cannula BMI result Body Mass Index 29.2 Labs 11/02/23 08:48 Imaging Radiology Impressions: ITS Impressions Chest X-Ray 11/01/23 18:22 IMPRESSION: Right lower lobe atelectasis and/or pneumonia. Follow-up to resolution is suggested. Medications Medications Current Medications Acetaminophen (Acetaminophen 325 Mg Tablet) 650 mg PO Q6H PRN PRN Reason: Headache/Pain Mild Scale (1-3) Al Hydroxide/Mg Hydroxide (Magnesium Hydrox/Alum Hydrox 30 Ml Oral.Susp) 30 ml PO Q6H PRN PRN Reason: Heartburn/Nausea Albuterol/Ipratropium (Albuterol/Iprat 2.5/0.5mg 3 Ml Ampul.Neb) 3 ml INHALE Q6H PRN PRN Reason: shortness of breath Aripiprazole (Aripiprazole 15 Mg Tablet) 15 mg PO DAILY [facility] Aspirin (Aspirin Enteric Coated 81 Mg Tablet.) 81 mg PO DAILY [facility] Last Admin: 11/08/23 08:16 Dose: 81 mg Atorvastatin Calcium (Atorvastatin Calcium 10 Mg Tablet) 10 mg PO DAILY [facility] Last Admin: 11/08/23 08:16 Dose: 10 mg Budesonide (Budesonide 180 Mcg Aer.Pow.Ba) 2 puff INHALE RBID [facility] Last Admin: 11/08/23 08:18 Dose: 2 puff Clonazepam (Clonazepam 0.5 Mg Tablet) 0.5 mg PO BID PRN PRN Reason: moderate, anxiety Last Admin: 11/06/23 08:40 Dose: 0.5 mg Fluphenazine HCl (Fluphenazine Hcl 5 Mg Tablet) 10 mg PO BID [facility] Last Admin: 11/08/23 08:16 Dose: 10 mg Guaifenesin (Guaifenesin La 600 Mg Tab.Er.12h) 600 mg PO BID [facility] Last Admin: 11/08/23 08:15 Dose: 600 mg Lacosamide (Lacosamide 100 Mg Tablet) 200 mg PO DAILY [facility] Last Admin: 11/08/23 08:15 Dose: 200 mg Loratadine (Loratadine 10 Mg Tablet) 10 mg PO DAILY PRN PRN Reason: allergy sx Magnesium Hydroxide (Milk Of Magnesia 30 Ml Oral.Susp) 30 ml PO DAILY PRN PRN Reason: Constipation Last Admin: 11/06/23 08:50 Dose: 30 ml Melatonin (Melatonin 3 Mg Tablet) 3 mg PO BEDTIME [facility] Last Admin: 11/07/23 21:53 Dose: 3 mg Multivitamins/Vitamin C (Multivitamin Tablet) 1 tab PO DAILY [facility] Last Admin: 11/08/23 08:16 Dose: 1 tab Senna/Docusate Sodium (Sennosides/Docusate Sodium Tablet) 1 tab PO BID [facility] Last Admin: 11/08/23 08:16 Dose: 1 tab Trazodone HCl (Trazodone Hcl 50 Mg Tablet) 50 mg PO BEDTIME MRX1 PRN PRN Reason: Insomnia Last Admin: 11/07/23 21:54 Dose: 50 mg Valsartan (Valsartan 80 Mg Tablet) 80 mg PO DAILY [facility]; Protocol Last Admin: 11/08/23 08:15 Dose: 80 mg Venlafaxine HCl (Venlafaxine Hcl 25 Mg Tablet) 37.5 mg PO DAILY [facility] Last Admin: 11/08/23 08:13 Dose: 37.5 mg Allergies Allergies Allergy/AdvReac Type Severity Reaction Status Date / Time amoxicillin Allergy Mild Diarrhea Verified 11/01/23 16:18 azithromycin Allergy Diarrhea Verified 11/01/23 16:19 propranolol Allergy Itching Verified 11/01/23 16:22 [email or web address] Allergy Itching Verified 11/01/23 16:22 Assessment & Plan Assessment & Plan (1) Schizophrenia, paranoid: Status: Acute Code(s): F20.0 - Paranoid schizophrenia Plan Ms. Jimenez is a 63 year-old woman with hx of paranoid schizophrenia who is having increase paranoid delusions, no aggression or suicidality. She does take medications consistently but given that she is currently not connected with psychiatrist and is in need of med adjustments she was admitted voluntarily to the psychiatric unit. We discussed risks, benefits and alternative treatment options, discussed taper off venlafaxine as it will worsen psychosis and delusions. She is on high dose of prolixin 20mg po daily. She apparently has hx of TD, on [place], currently not taking it as it is not on formulary. Noted resting tremor on right hand, some mild perioral involuntary movement. PLAN 1. Admit to S1, CV, 1:1 due to oxygen restart abilify 20mg po daily and continues prolixin 10mg po BID. Reason for continued inpatient stay Substantial Risk for: inability to function Time Spent With Patient Time: Total time managing care of this patient today ____ minutes.
[2023-11-08] MEDS: ARIPiprazole 15 MG TABLET PO (12:20)
[2023-11-08] MEDS: Melatonin 3 MG TABLET PO (21:28)
[2023-11-09 08:00] VITALS: BP 121/60; PULSE 70; RESP 14; TEMP 36.2; O2SAT 100
[2023-11-09] MEDS: Valsartan 80 MG TABLET PO (08:28)
[2023-11-09] MEDS: ARIPiprazole 15 MG TABLET PO (08:28)
[2023-11-09] MEDS: Budesonide 180 MCG AER.POW.BA 2 PUFF INHALE ×2 (08:28→21:43)
[2023-11-09] MEDS: Aspirin Enteric Coated 81 MG TABLET.DR PO (08:28)
[2023-11-09] MEDS: Multivitamin TABLET 1 TAB PO (08:28)
[2023-11-09] MEDS: Sennosides/Docusate Sodium TABLET 1 TAB PO ×2 (08:28→21:43)
[2023-11-09] MEDS: fluPHENAZine HCl 5 MG TABLET 10 MG PO ×2 (08:29→21:43)
[2023-11-09] MEDS: Lacosamide 100 MG TABLET 200 MG PO (08:29)
[2023-11-09] MEDS: guaiFENesin LA 600 MG TAB.ER.12H PO ×2 (08:29→21:43)
[2023-11-09] MEDS: Atorvastatin Calcium 10 MG TABLET PO (08:29)
[2023-11-09] MEDS: Venlafaxine HCL 25 MG TABLET 37.5 MG PO (08:29)
--- NOTE | 2023-11-09 08:46 | HO.PSYCHPN ---
Subjective Subjective Date of Service: 11/09/23 Reason For Visit: Schizophrenia Subjective Notes: Conditional Voluntary Interim History: Pt reports sleeping well. She reports feeling safe here. She states she may be able to return home, maybe she is safe at her apartment. She reports less voices, thinks voices are not talking to her because she is on vacation here on the unit. She hopes the real God takes care of evil neighbors in [facility]. Review of Systems Review of Systems Pt denies chest pain. She is on oxygen, no SOB or wheezing Denies constipation or loose stools. No abdominal pain. No changes in vision. Mental Status Exam Mental Status Exam Narrative: Appearance: wearing casual clothing, good hygiene, in NAD Behavior: cooperative and friendly Psychomotor: no agitation or retardation noted. resting tremor right hand more pronounce, no overt perioral movements. Speech: clear, normal rate/rhythm/volume, spontaneous TP: tangential at times TC: concern about her neighbors trying to hurt her but with the reassurance that mother nature protects her. Mood: good Affect:congruent, brightens up at times SI: denies HI: none VH/AH: hearing voices of mother nature Delusions: paranoid delusions Insight/judgment: impaired x2 Memory/cog: alert, oriented x 3. Diagnostics Vital Signs (24Hr): BMI result Body Mass Index 29.2 Labs 11/02/23 08:48 Imaging Radiology Impressions: ITS Impressions Chest X-Ray 11/01/23 18:22 IMPRESSION: Right lower lobe atelectasis and/or pneumonia. Follow-up to resolution is suggested. Medications Medications Current Medications Acetaminophen (Acetaminophen 325 Mg Tablet) 650 mg PO Q6H PRN PRN Reason: Headache/Pain Mild Scale (1-3) Al Hydroxide/Mg Hydroxide (Magnesium Hydrox/Alum Hydrox 30 Ml Oral.Susp) 30 ml PO Q6H PRN PRN Reason: Heartburn/Nausea Albuterol/Ipratropium (Albuterol/Iprat 2.5/0.5mg 3 Ml Ampul.Neb) 3 ml INHALE Q6H PRN PRN Reason: shortness of breath Aripiprazole (Aripiprazole 15 Mg Tablet) 15 mg PO DAILY [facility] Last Admin: 11/09/23 08:28 Dose: 15 mg Aspirin (Aspirin Enteric Coated 81 Mg Tablet.) 81 mg PO DAILY [facility] Last Admin: 11/09/23 08:28 Dose: 81 mg Atorvastatin Calcium (Atorvastatin Calcium 10 Mg Tablet) 10 mg PO DAILY [facility] Last Admin: 11/09/23 08:29 Dose: 10 mg Budesonide (Budesonide 180 Mcg Aer.Pow.Ba) 2 puff INHALE RBID [facility] Last Admin: 11/09/23 08:28 Dose: 2 puff Clonazepam (Clonazepam 0.5 Mg Tablet) 0.5 mg PO BID PRN PRN Reason: moderate, anxiety Last Admin: 11/06/23 08:40 Dose: 0.5 mg Fluphenazine HCl (Fluphenazine Hcl 5 Mg Tablet) 10 mg PO BID [facility] Last Admin: 11/09/23 08:29 Dose: 10 mg Guaifenesin (Guaifenesin La 600 Mg Tab.Er.12h) 600 mg PO BID [facility] Last Admin: 11/09/23 08:29 Dose: 600 mg Lacosamide (Lacosamide 100 Mg Tablet) 200 mg PO DAILY [facility] Last Admin: 11/09/23 08:29 Dose: 200 mg Loratadine (Loratadine 10 Mg Tablet) 10 mg PO DAILY PRN PRN Reason: allergy sx Magnesium Hydroxide (Milk Of Magnesia 30 Ml Oral.Susp) 30 ml PO DAILY PRN PRN Reason: Constipation Last Admin: 11/06/23 08:50 Dose: 30 ml Melatonin (Melatonin 3 Mg Tablet) 3 mg PO BEDTIME [facility] Last Admin: 11/08/23 21:28 Dose: 3 mg Multivitamins/Vitamin C (Multivitamin Tablet) 1 tab PO DAILY [facility] Last Admin: 11/09/23 08:28 Dose: 1 tab Senna/Docusate Sodium (Sennosides/Docusate Sodium Tablet) 1 tab PO BID [facility] Last Admin: 11/09/23 08:28 Dose: 1 tab Trazodone HCl (Trazodone Hcl 50 Mg Tablet) 50 mg PO BEDTIME MRX1 PRN PRN Reason: Insomnia Last Admin: 11/07/23 21:54 Dose: 50 mg Valsartan (Valsartan 80 Mg Tablet) 80 mg PO DAILY [facility]; Protocol Last Admin: 11/09/23 08:28 Dose: 80 mg Venlafaxine HCl (Venlafaxine Hcl 25 Mg Tablet) 37.5 mg PO DAILY [facility] Last Admin: 11/09/23 08:29 Dose: 37.5 mg Allergies Allergies Allergy/AdvReac Type Severity Reaction Status Date / Time amoxicillin Allergy Mild Diarrhea Verified 11/01/23 16:18 azithromycin Allergy Diarrhea Verified 11/01/23 16:19 propranolol Allergy Itching Verified 11/01/23 16:22 [email or web address] Allergy Itching Verified 11/01/23 16:22 Assessment & Plan Assessment & Plan (1) Schizophrenia, paranoid: Status: Acute Code(s): F20.0 - Paranoid schizophrenia Plan Ms. Jimenez is a 63 year-old woman with hx of paranoid schizophrenia who is having increase paranoid delusions, no aggression or suicidality. She does take medications consistently but given that she is currently not connected with psychiatrist and is in need of med adjustments she was admitted voluntarily to the psychiatric unit. We discussed risks, benefits and alternative treatment options, discussed taper off venlafaxine as it will worsen psychosis and delusions. She is on high dose of prolixin 20mg po daily. She apparently has hx of TD, on [place], currently not taking it as it is not on formulary. Noted resting tremor on right hand, some mild perioral involuntary movement. PLAN 1. Admit to S1, CV, 1:1 due to oxygen 2. continue abilify 20mg po daily and continues prolixin 10mg po BID. Reason for continued inpatient stay Substantial Risk for: inability to function Time Spent With Patient Time: Total time managing care of this patient today ____ minutes.
[2023-11-09 09:56] VITALS: BMI 29.9
[2023-11-09 20:08] VITALS: BP 112/60; PULSE 76; RESP 16; TEMP 36.7; O2SAT 98
[2023-11-09] MEDS: Melatonin 3 MG TABLET PO (21:44)
[2023-11-10 07:55] VITALS: BP 138/64; PULSE 67; RESP 18; TEMP 36.6; O2SAT 99
[2023-11-10] MEDS: Sennosides/Docusate Sodium TABLET 1 TAB PO ×2 (09:09→21:20)
[2023-11-10] MEDS: Budesonide 180 MCG AER.POW.BA 2 PUFF INHALE ×2 (09:09→21:17)
[2023-11-10] MEDS: fluPHENAZine HCl 5 MG TABLET 10 MG PO ×2 (09:09→21:18)
[2023-11-10] MEDS: Valsartan 80 MG TABLET PO (09:09)
[2023-11-10] MEDS: Venlafaxine HCL 25 MG TABLET 37.5 MG PO (09:10)
[2023-11-10] MEDS: Atorvastatin Calcium 10 MG TABLET PO (09:11)
[2023-11-10] MEDS: Lacosamide 100 MG TABLET 200 MG PO (09:11)
[2023-11-10] MEDS: Aspirin Enteric Coated 81 MG TABLET.DR PO (09:13)
[2023-11-10] MEDS: ARIPiprazole 15 MG TABLET PO (09:13)
[2023-11-10] MEDS: Multivitamin TABLET 1 TAB PO (09:13)
[2023-11-10] MEDS: guaiFENesin LA 600 MG TAB.ER.12H PO ×2 (09:13→21:19)
[2023-11-10 18:00] VITALS: BP 131/62; PULSE 69; RESP 20; TEMP 36.3; O2SAT 98
[2023-11-10] MEDS: Melatonin 3 MG TABLET PO (21:19)
[2023-11-10] MEDS: clonazePAM 0.5 MG TABLET PO (21:25)
[2023-11-11 07:58] VITALS: BP 138/63; PULSE 61; RESP 18; TEMP 36.4; O2SAT 99
[2023-11-11] MEDS: fluPHENAZine HCl 5 MG TABLET 10 MG PO ×2 (08:41→21:14)
[2023-11-11] MEDS: Atorvastatin Calcium 10 MG TABLET PO (08:42)
[2023-11-11] MEDS: Aspirin Enteric Coated 81 MG TABLET.DR PO (08:42)
[2023-11-11] MEDS: Venlafaxine HCL 25 MG TABLET 37.5 MG PO (08:42)
[2023-11-11] MEDS: ARIPiprazole 15 MG TABLET PO (08:42)
[2023-11-11] MEDS: Lacosamide 100 MG TABLET 200 MG PO (08:42)
[2023-11-11] MEDS: Sennosides/Docusate Sodium TABLET 1 TAB PO ×2 (08:42→21:14)
[2023-11-11] MEDS: guaiFENesin LA 600 MG TAB.ER.12H PO ×2 (08:42→21:14)
[2023-11-11] MEDS: Multivitamin TABLET 1 TAB PO (08:42)
[2023-11-11] MEDS: Valsartan 80 MG TABLET PO (08:42)
[2023-11-11] MEDS: Budesonide 180 MCG AER.POW.BA 2 PUFF INHALE ×2 (08:46→21:13)
--- NOTE | 2023-11-11 10:13 | P.PNPSI_ITS ---
Subjective Subjective Date of Service: 11/11/23 Reason For Visit: Schizophrenia Subjective Notes: Conditional Voluntary Interim History: Pt reports sleeping well. She reports feeling safe here. She states she may be able to return home, maybe she is safe at her apartment. She reports less voices, thinks voices are not talking to her because she is on vacation here on the unit. She hopes the real God takes care of evil neighbors in [facility]. Mental Status Exam Mental Status Exam Narrative: Appearance: wearing casual clothing, good hygiene, in NAD Behavior: cooperative and friendly Psychomotor: no agitation or retardation noted. Speech: clear, normal rate/rhythm/volume, spontaneous TP: tangential at times TC: concern about her neighbors trying to hurt her but with the reassurance that mother nature protects her. Mood: good Affect:congruent, brightens up at times SI: denies HI: none VH/AH: hearing voices of mother nature Delusions: paranoid delusions Insight/judgment: impaired x2 Memory/cog: alert, oriented x 3. Diagnostics Vital Signs (24Hr): Vital Signs - 24 hr 11/10/23 18:00 Temperature 97.4 F Pulse Rate 69 Respiratory Rate 20 Blood Pressure 131/62 Pulse Oximetry 98 Oxygen Delivery Method Room Air BMI result Body Mass Index 29.9 Labs 11/02/23 08:48 Imaging Radiology Impressions: ITS Impressions Chest X-Ray 11/01/23 18:22 IMPRESSION: Right lower lobe atelectasis and/or pneumonia. Follow-up to resolution is suggested. Medications Medications Current Medications Acetaminophen (Acetaminophen 325 Mg Tablet) 650 mg PO Q6H PRN PRN Reason: Headache/Pain Mild Scale (1-3) Al Hydroxide/Mg Hydroxide (Magnesium Hydrox/Alum Hydrox 30 Ml Oral.Susp) 30 ml PO Q6H PRN PRN Reason: Heartburn/Nausea Albuterol/Ipratropium (Albuterol/Iprat 2.5/0.5mg 3 Ml Ampul.Neb) 3 ml INHALE Q6H PRN PRN Reason: shortness of breath Aripiprazole (Aripiprazole 15 Mg Tablet) 15 mg PO DAILY [facility] Last Admin: 11/11/23 08:42 Dose: 15 mg Aspirin (Aspirin Enteric Coated 81 Mg Tablet.) 81 mg PO DAILY [facility] Last Admin: 11/11/23 08:42 Dose: 81 mg Atorvastatin Calcium (Atorvastatin Calcium 10 Mg Tablet) 10 mg PO DAILY [facility] Last Admin: 11/11/23 08:42 Dose: 10 mg Budesonide (Budesonide 180 Mcg Aer.Pow.Ba) 2 puff INHALE RBID [facility] Last Admin: 11/11/23 08:46 Dose: 2 puff Clonazepam (Clonazepam 0.5 Mg Tablet) 0.5 mg PO BID PRN PRN Reason: moderate, anxiety Last Admin: 11/10/23 21:25 Dose: 0.5 mg Fluphenazine HCl (Fluphenazine Hcl 5 Mg Tablet) 10 mg PO BID [facility] Last Admin: 11/11/23 08:41 Dose: 10 mg Guaifenesin (Guaifenesin La 600 Mg Tab.Er.12h) 600 mg PO BID [facility] Last Admin: 11/11/23 08:42 Dose: 600 mg Lacosamide (Lacosamide 100 Mg Tablet) 200 mg PO DAILY [facility] Last Admin: 11/11/23 08:42 Dose: 200 mg Loratadine (Loratadine 10 Mg Tablet) 10 mg PO DAILY PRN PRN Reason: allergy sx Magnesium Hydroxide (Milk Of Magnesia 30 Ml Oral.Susp) 30 ml PO DAILY PRN PRN Reason: Constipation Last Admin: 11/06/23 08:50 Dose: 30 ml Melatonin (Melatonin 3 Mg Tablet) 3 mg PO BEDTIME [facility] Last Admin: 11/10/23 21:19 Dose: 3 mg Multivitamins/Vitamin C (Multivitamin Tablet) 1 tab PO DAILY [facility] Last Admin: 11/11/23 08:42 Dose: 1 tab Senna/Docusate Sodium (Sennosides/Docusate Sodium Tablet) 1 tab PO BID [facility] Last Admin: 11/11/23 08:42 Dose: 1 tab Trazodone HCl (Trazodone Hcl 50 Mg Tablet) 50 mg PO BEDTIME MRX1 PRN PRN Reason: Insomnia Last Admin: 11/07/23 21:54 Dose: 50 mg Valsartan (Valsartan 80 Mg Tablet) 80 mg PO DAILY [facility]; Protocol Last Admin: 11/11/23 08:42 Dose: 80 mg Venlafaxine HCl (Venlafaxine Hcl 25 Mg Tablet) 37.5 mg PO DAILY [facility] Last Admin: 11/11/23 08:42 Dose: 37.5 mg Allergies Allergies Allergy/AdvReac Type Severity Reaction Status Date / Time amoxicillin Allergy Mild Diarrhea Verified 11/01/23 16:18 azithromycin Allergy Diarrhea Verified 11/01/23 16:19 propranolol Allergy Itching Verified 11/01/23 16:22 [email or web address] Allergy Itching Verified 11/01/23 16:22 Assessment & Plan Assessment & Plan (1) Schizophrenia, paranoid: Status: Acute Code(s): F20.0 - Paranoid schizophrenia Plan Ms. Jimenez is a 63 year-old woman with hx of paranoid schizophrenia who is having increase paranoid delusions, no aggression or suicidality. She does take medications consistently but given that she is currently not connected with psychiatrist and is in need of med adjustments she was admitted voluntarily to the psychiatric unit. We discussed risks, benefits and alternative treatment options, discussed taper off venlafaxine as it will worsen psychosis and delusions. She is on high dose of prolixin 20mg po daily. She apparently has hx of TD, on [place], currently not taking it as it is not on formulary. Noted resting tremor on right hand, some mild perioral involuntary movement. PLAN 1. Admit to S1, CV, 1:1 due to oxygen 2. continue abilify 20mg po daily and continues prolixin 10mg po BID. 11/11/2023 Continue plan of care patient on oxygen cooperative calm on exam hoping to taper down on oxygen this has been a very relatively new requirement Informed Consent: further education needed Reason for continued inpatient stay Substantial Risk for: inability to function and med/psych decompensation Time Spent With Patient Time: Total time managing care of this patient today ____ minutes.
[2023-11-11 11:07] VITALS: O2SAT 96
[2023-11-11 18:00] VITALS: BP 126/73; PULSE 60; RESP 18; TEMP 36.3; O2SAT 97
[2023-11-11] MEDS: clonazePAM 0.5 MG TABLET PO (21:13)
[2023-11-11] MEDS: Melatonin 3 MG TABLET PO (21:13)
[2023-11-12 07:35] VITALS: BP 142/73; PULSE 60; RESP 16; TEMP 36.1; O2SAT 99
[2023-11-12] MEDS: fluPHENAZine HCl 5 MG TABLET 10 MG PO ×2 (08:15→20:15)
[2023-11-12] MEDS: Venlafaxine HCL 25 MG TABLET 37.5 MG PO (08:16)
[2023-11-12] MEDS: Valsartan 80 MG TABLET PO (08:16)
[2023-11-12] MEDS: guaiFENesin LA 600 MG TAB.ER.12H PO ×2 (08:16→20:17)
[2023-11-12] MEDS: Budesonide 180 MCG AER.POW.BA 2 PUFF INHALE ×2 (08:16→20:13)
[2023-11-12] MEDS: Lacosamide 100 MG TABLET 200 MG PO (08:16)
[2023-11-12] MEDS: Aspirin Enteric Coated 81 MG TABLET.DR PO (08:16)
[2023-11-12] MEDS: Atorvastatin Calcium 10 MG TABLET PO (08:16)
[2023-11-12] MEDS: clonazePAM 0.5 MG TABLET PO ×2 (08:16→20:18)
[2023-11-12] MEDS: Multivitamin TABLET 1 TAB PO (08:16)
[2023-11-12] MEDS: ARIPiprazole 15 MG TABLET PO (08:16)
[2023-11-12] MEDS: Sennosides/Docusate Sodium TABLET 1 TAB PO ×2 (08:16→20:14)
--- NOTE | 2023-11-12 10:28 | P.PNPSI_ITS ---
Subjective Subjective Date of Service: 11/12/23 Reason For Visit: Schizophrenia Subjective Notes: Conditional Voluntary Interim History: Patient continues to have auditory hallucinations but they seem benign. Mental Status Exam Mental Status Exam Narrative: Appearance: wearing casual clothing, good hygiene, in NAD Behavior: cooperative and friendly Psychomotor: no agitation or retardation noted. Speech: clear, normal rate/rhythm/volume, spontaneous TP: tangential at times TC: concern about her neighbors trying to hurt her but with the reassurance that mother nature protects her. Mood: good Affect:congruent, brightens up at times SI: denies HI: none VH/AH: hearing voices of mother nature Delusions: paranoid delusions Insight/judgment: impaired x2 Memory/cog: alert, oriented x 3. Diagnostics Vital Signs (24Hr): Vital Signs - 24 hr 11/11/23 11:07 11/11/23 18:00 11/12/23 07:35 Temperature 97.3 F 97.0 F Pulse Rate 60 60 Respiratory Rate 18 16 Blood Pressure 126/73 142/73 H Pulse Oximetry 96 97 99 Oxygen Delivery Method Nasal Cannula Nasal Cannula Nasal Cannula Oxygen Flow Rate 1 2 2 BMI result Body Mass Index 29.9 Labs 11/02/23 08:48 Imaging Radiology Impressions: ITS Impressions Chest X-Ray 11/01/23 18:22 IMPRESSION: Right lower lobe atelectasis and/or pneumonia. Follow-up to resolution is suggested. Medications Medications Current Medications Acetaminophen (Acetaminophen 325 Mg Tablet) 650 mg PO Q6H PRN PRN Reason: Headache/Pain Mild Scale (1-3) Al Hydroxide/Mg Hydroxide (Magnesium Hydrox/Alum Hydrox 30 Ml Oral.Susp) 30 ml PO Q6H PRN PRN Reason: Heartburn/Nausea Albuterol/Ipratropium (Albuterol/Iprat 2.5/0.5mg 3 Ml Ampul.Neb) 3 ml INHALE Q6H PRN PRN Reason: shortness of breath Aripiprazole (Aripiprazole 15 Mg Tablet) 15 mg PO DAILY [facility] Last Admin: 11/12/23 08:16 Dose: 15 mg Aspirin (Aspirin Enteric Coated 81 Mg Tablet.Dr) 81 mg PO DAILY [facility] Last Admin: 11/12/23 08:16 Dose: 81 mg Atorvastatin Calcium (Atorvastatin Calcium 10 Mg Tablet) 10 mg PO DAILY [facility] Last Admin: 11/12/23 08:16 Dose: 10 mg Budesonide (Budesonide 180 Mcg Aer.Pow.Ba) 2 puff INHALE RBID [facility] Last Admin: 11/12/23 08:16 Dose: 2 puff Clonazepam (Clonazepam 0.5 Mg Tablet) 0.5 mg PO BID PRN PRN Reason: moderate, anxiety Last Admin: 11/12/23 08:16 Dose: 0.5 mg Fluphenazine HCl (Fluphenazine Hcl 5 Mg Tablet) 10 mg PO BID [facility] Last Admin: 11/12/23 08:15 Dose: 10 mg Guaifenesin (Guaifenesin La 600 Mg Tab.Er.12h) 600 mg PO BID [facility] Last Admin: 11/12/23 08:16 Dose: 600 mg Lacosamide (Lacosamide 100 Mg Tablet) 200 mg PO DAILY [facility] Last Admin: 11/12/23 08:16 Dose: 200 mg Loratadine (Loratadine 10 Mg Tablet) 10 mg PO DAILY PRN PRN Reason: allergy sx Magnesium Hydroxide (Milk Of Magnesia 30 Ml Oral.Susp) 30 ml PO DAILY PRN PRN Reason: Constipation Last Admin: 11/06/23 08:50 Dose: 30 ml Melatonin (Melatonin 3 Mg Tablet) 3 mg PO BEDTIME [facility] Last Admin: 11/11/23 21:13 Dose: 3 mg Multivitamins/Vitamin C (Multivitamin Tablet) 1 tab PO DAILY [facility] Last Admin: 11/12/23 08:16 Dose: 1 tab Senna/Docusate Sodium (Sennosides/Docusate Sodium Tablet) 1 tab PO BID [facility] Last Admin: 11/12/23 08:16 Dose: 1 tab Trazodone HCl (Trazodone Hcl 50 Mg Tablet) 50 mg PO BEDTIME MRX1 PRN PRN Reason: Insomnia Last Admin: 11/07/23 21:54 Dose: 50 mg Valsartan (Valsartan 80 Mg Tablet) 80 mg PO DAILY [facility]; Protocol Last Admin: 11/12/23 08:16 Dose: 80 mg Venlafaxine HCl (Venlafaxine Hcl 25 Mg Tablet) 37.5 mg PO DAILY [facility] Last Admin: 11/12/23 08:16 Dose: 37.5 mg Allergies Allergies Allergy/AdvReac Type Severity Reaction Status Date / Time amoxicillin Allergy Mild Diarrhea Verified 11/01/23 16:18 azithromycin Allergy Diarrhea Verified 11/01/23 16:19 propranolol Allergy Itching Verified 11/01/23 16:22 [email or web address] Allergy Itching Verified 11/01/23 16:22 Assessment & Plan Assessment & Plan (1) Schizophrenia, paranoid: Status: Acute Code(s): F20.0 - Paranoid schizophrenia Plan Ms. Jimenez is a 63 year-old woman with hx of paranoid schizophrenia who is having increase paranoid delusions, no aggression or suicidality. She does take medications consistently but given that she is currently not connected with psychiatrist and is in need of med adjustments she was admitted voluntarily to the psychiatric unit. We discussed risks, benefits and alternative treatment options, discussed taper off venlafaxine as it will worsen psychosis and delusions. She is on high dose of prolixin 20mg po daily. She apparently has hx of TD, on [place], currently not taking it as it is not on formulary. Noted resting tremor on right hand, some mild perioral involuntary movement. PLAN 1. Admit to S1, CV, 1:1 due to oxygen 2. continue abilify 20mg po daily and continues prolixin 10mg po BID. 11/11/2023 Continue plan of care patient on oxygen cooperative calm on exam hoping to taper down on oxygen this has been a very relatively new requirement 11/12/2023 Patient relatively stable chronically hallucinating but does not seem overly agitated continue plan of care Reason for continued inpatient stay Substantial Risk for: stable for discharge and rapid decompensation Time Spent With Patient Time: Total time managing care of this patient today ____ minutes.
[2023-11-12 18:00] VITALS: BP 121/57; PULSE 62; RESP 16; TEMP 36.8; O2SAT 98
[2023-11-12] MEDS: Melatonin 3 MG TABLET PO (20:17)
[2023-11-13 08:00] VITALS: BP 126/73; PULSE 68; RESP 18; TEMP 36.3; O2SAT 98
[2023-11-13] MEDS: Valsartan 80 MG TABLET PO (09:00)
[2023-11-13] MEDS: Budesonide 180 MCG AER.POW.BA 2 PUFF INHALE ×2 (09:00→21:04)
[2023-11-13] MEDS: Venlafaxine HCL 25 MG TABLET 37.5 MG PO (09:01)
[2023-11-13] MEDS: Sennosides/Docusate Sodium TABLET 1 TAB PO ×2 (09:02→21:03)
[2023-11-13] MEDS: fluPHENAZine HCl 5 MG TABLET 10 MG PO ×2 (09:02→21:03)
[2023-11-13] MEDS: Atorvastatin Calcium 10 MG TABLET PO (09:02)
[2023-11-13] MEDS: Lacosamide 100 MG TABLET 200 MG PO (09:02)
[2023-11-13] MEDS: ARIPiprazole 15 MG TABLET PO (09:02)
[2023-11-13] MEDS: Multivitamin TABLET 1 TAB PO (09:02)
[2023-11-13] MEDS: Aspirin Enteric Coated 81 MG TABLET.DR PO (09:02)
[2023-11-13] MEDS: guaiFENesin LA 600 MG TAB.ER.12H PO ×2 (09:02→21:03)
--- NOTE | 2023-11-13 09:10 | HO.PSYCHPN ---
Subjective Subjective Date of Service: 11/13/23 Reason For Visit: Schizophrenia Subjective Notes: Conditional Voluntary Interim History: Pt is less preoccupied with paranoid delusions of neighbors being evil and trying to harm her. She reports less AH. No SI/HI. She has been visible on the unit and social with peers. She is pleasant on approach. No behavioral concerns. Taking medications as prescribed. Review of Systems Review of Systems Pt denies chest pain. She is on oxygen, no SOB or wheezing Denies constipation or loose stools. No abdominal pain. No changes in vision. Mental Status Exam Mental Status Exam Narrative: Appearance: wearing casual clothing, good hygiene, in NAD Behavior: cooperative and friendly Psychomotor: no agitation or retardation noted. Speech: clear, normal rate/rhythm/volume, spontaneous TP: tangential at times TC: concern about her neighbors trying to hurt her but with the reassurance that mother nature protects her. Mood: good Affect:congruent, brightens up at times SI: denies HI: none VH/AH: hearing voices of mother nature Delusions: paranoid delusions Insight/judgment: improving x2 Memory/cog: alert, oriented x 3. Diagnostics Vital Signs (24Hr): Vital Signs - 24 hr 11/12/23 18:00 Temperature 98.3 F Pulse Rate 62 Respiratory Rate 16 Blood Pressure 121/57 L Pulse Oximetry 98 Oxygen Delivery Method Room Air BMI result Body Mass Index 29.9 Labs 11/02/23 08:48 Imaging Radiology Impressions: ITS Impressions Chest X-Ray 11/01/23 18:22 IMPRESSION: Right lower lobe atelectasis and/or pneumonia. Follow-up to resolution is suggested. Medications Medications Current Medications Acetaminophen (Acetaminophen 325 Mg Tablet) 650 mg PO Q6H PRN PRN Reason: Headache/Pain Mild Scale (1-3) Al Hydroxide/Mg Hydroxide (Magnesium Hydrox/Alum Hydrox 30 Ml Oral.Susp) 30 ml PO Q6H PRN PRN Reason: Heartburn/Nausea Albuterol/Ipratropium (Albuterol/Iprat 2.5/0.5mg 3 Ml Ampul.Neb) 3 ml INHALE Q6H PRN PRN Reason: shortness of breath Aripiprazole (Aripiprazole 15 Mg Tablet) 15 mg PO DAILY [facility] Last Admin: 11/13/23 09:02 Dose: 15 mg Aspirin (Aspirin Enteric Coated 81 Mg Tablet.) 81 mg PO DAILY [facility] Last Admin: 11/13/23 09:02 Dose: 81 mg Atorvastatin Calcium (Atorvastatin Calcium 10 Mg Tablet) 10 mg PO DAILY [facility] Last Admin: 11/13/23 09:02 Dose: 10 mg Budesonide (Budesonide 180 Mcg Aer.Pow.Ba) 2 puff INHALE RBID [facility] Last Admin: 11/13/23 09:00 Dose: 2 puff Clonazepam (Clonazepam 0.5 Mg Tablet) 0.5 mg PO BID PRN PRN Reason: moderate, anxiety Last Admin: 11/12/23 20:18 Dose: 0.5 mg Fluphenazine HCl (Fluphenazine Hcl 5 Mg Tablet) 10 mg PO BID [facility] Last Admin: 11/13/23 09:02 Dose: 10 mg Guaifenesin (Guaifenesin La 600 Mg Tab.Er.12h) 600 mg PO BID [facility] Last Admin: 11/13/23 09:02 Dose: 600 mg Lacosamide (Lacosamide 100 Mg Tablet) 200 mg PO DAILY [facility] Last Admin: 11/13/23 09:02 Dose: 200 mg Loratadine (Loratadine 10 Mg Tablet) 10 mg PO DAILY PRN PRN Reason: allergy sx Magnesium Hydroxide (Milk Of Magnesia 30 Ml Oral.Susp) 30 ml PO DAILY PRN PRN Reason: Constipation Last Admin: 11/06/23 08:50 Dose: 30 ml Melatonin (Melatonin 3 Mg Tablet) 3 mg PO BEDTIME [facility] Last Admin: 11/12/23 20:17 Dose: 3 mg Multivitamins/Vitamin C (Multivitamin Tablet) 1 tab PO DAILY [facility] Last Admin: 11/13/23 09:02 Dose: 1 tab Senna/Docusate Sodium (Sennosides/Docusate Sodium Tablet) 1 tab PO BID [facility] Last Admin: 11/13/23 09:02 Dose: 1 tab Trazodone HCl (Trazodone Hcl 50 Mg Tablet) 50 mg PO BEDTIME MRX1 PRN PRN Reason: Insomnia Last Admin: 11/07/23 21:54 Dose: 50 mg Valsartan (Valsartan 80 Mg Tablet) 80 mg PO DAILY [facility]; Protocol Last Admin: 11/13/23 09:00 Dose: 80 mg Venlafaxine HCl (Venlafaxine Hcl 25 Mg Tablet) 37.5 mg PO DAILY [facility] Last Admin: 11/13/23 09:01 Dose: 37.5 mg Allergies Allergies Allergy/AdvReac Type Severity Reaction Status Date / Time amoxicillin Allergy Mild Diarrhea Verified 11/01/23 16:18 azithromycin Allergy Diarrhea Verified 11/01/23 16:19 propranolol Allergy Itching Verified 11/01/23 16:22 [email or web address] Allergy Itching Verified 11/01/23 16:22 Assessment & Plan Assessment & Plan (1) Schizophrenia, paranoid: Status: Acute Code(s): F20.0 - Paranoid schizophrenia Plan Ms. Jimenez is a 63 year-old woman with hx of paranoid schizophrenia who is having increase paranoid delusions, no aggression or suicidality. She does take medications consistently but given that she is currently not connected with psychiatrist and is in need of med adjustments she was admitted voluntarily to the psychiatric unit. We discussed risks, benefits and alternative treatment options, discussed taper off venlafaxine as it will worsen psychosis and delusions. She is on high dose of prolixin 20mg po daily. She apparently has hx of TD, on [place], currently not taking it as it is not on formulary. Noted resting tremor on right hand, some mild perioral involuntary movement. PLAN 1. Admit to S1, CV, 1:1 due to oxygen 2. continue abilify 20mg po daily and continues prolixin 10mg po BID. 11/11/2023 Continue plan of care patient on oxygen cooperative calm on exam hoping to taper down on oxygen this has been a very relatively new requirement 11/12/2023 Patient relatively stable chronically hallucinating but does not seem overly agitated continue plan of care 11/12 continue tx. Reason for continued inpatient stay Substantial Risk for: inability to function Time Spent With Patient Time: Total time managing care of this patient today ____ minutes.
[2023-11-13 18:00] VITALS: BP 114/53; PULSE 72; RESP 20; TEMP 36.6; O2SAT 98
[2023-11-13] MEDS: Melatonin 3 MG TABLET PO (21:03)
[2023-11-13] MEDS: clonazePAM 0.5 MG TABLET PO (21:03)
[2023-11-14 08:40] VITALS: BP 137/70; PULSE 61; RESP 18; TEMP 36.3; O2SAT 98
[2023-11-14] MEDS: Sennosides/Docusate Sodium TABLET 1 TAB PO ×2 (08:46→19:47)
[2023-11-14] MEDS: Atorvastatin Calcium 10 MG TABLET PO (08:46)
[2023-11-14] MEDS: Multivitamin TABLET 1 TAB PO (08:46)
[2023-11-14] MEDS: guaiFENesin LA 600 MG TAB.ER.12H PO ×2 (08:46→19:48)
[2023-11-14] MEDS: Aspirin Enteric Coated 81 MG TABLET.DR PO (08:47)
[2023-11-14] MEDS: Valsartan 80 MG TABLET PO (08:47)
[2023-11-14] MEDS: ARIPiprazole 15 MG TABLET PO (08:47)
[2023-11-14] MEDS: fluPHENAZine HCl 5 MG TABLET 10 MG PO ×2 (08:47→19:47)
[2023-11-14] MEDS: Lacosamide 100 MG TABLET 200 MG PO (08:48)
[2023-11-14] MEDS: Venlafaxine HCL 25 MG TABLET 37.5 MG PO (08:49)
[2023-11-14] MEDS: Budesonide 180 MCG AER.POW.BA 2 PUFF INHALE ×2 (08:50→19:51)
--- NOTE | 2023-11-14 16:27 | HO.PSYCHPN ---
Subjective Subjective Date of Service: 11/14/23 Reason For Visit: Schizophrenia Subjective Notes: Conditional Voluntary Interim History: Pt is less preoccupied with paranoid delusions of neighbors being evil and trying to harm her. She reports less AH. No SI/HI. She has been visible on the unit and social with peers. She is pleasant on approach. No behavioral concerns. Taking medications as prescribed. Discussed with sister in law, Janet results of ACL- 3.6 showing severe cognitive impairment as well as MOCA of 21/30 with impairments mostly related to executive function, recall, language fluency with intact orientation. Review of Systems Review of Systems Pt denies chest pain. She is on oxygen, no SOB or wheezing Denies constipation or loose stools. No abdominal pain. No changes in vision. Mental Status Exam Mental Status Exam Narrative: Appearance: wearing casual clothing, good hygiene, in NAD Behavior: cooperative and friendly Psychomotor: no agitation or retardation noted. Speech: clear, normal rate/rhythm/volume, spontaneous TP: tangential at times TC: concern about her neighbors trying to hurt her but with the reassurance that mother nature protects her. Mood: good Affect:congruent, brightens up at times SI: denies HI: none VH/AH: hearing voices of mother nature Delusions: paranoid delusions Insight/judgment: improving x2 Memory/cog: alert, oriented x 3. Diagnostics Vital Signs (24Hr): Vital Signs - 24 hr 11/13/23 18:00 11/14/23 08:40 Temperature 97.8 F 97.3 F Pulse Rate 72 61 Respiratory Rate 20 18 Blood Pressure 114/53 L 137/70 Pulse Oximetry 98 98 Oxygen Delivery Method Nasal Cannula Room Air Oxygen Flow Rate 2 BMI result Body Mass Index 29.9 Labs 11/02/23 08:48 Imaging Radiology Impressions: ITS Impressions Chest X-Ray 11/01/23 18:22 IMPRESSION: Right lower lobe atelectasis and/or pneumonia. Follow-up to resolution is suggested. Medications Medications Current Medications Acetaminophen (Acetaminophen 325 Mg Tablet) 650 mg PO Q6H PRN PRN Reason: Headache/Pain Mild Scale (1-3) Al Hydroxide/Mg Hydroxide (Magnesium Hydrox/Alum Hydrox 30 Ml Oral.Susp) 30 ml PO Q6H PRN PRN Reason: Heartburn/Nausea Albuterol/Ipratropium (Albuterol/Iprat 2.5/0.5mg 3 Ml Ampul.Neb) 3 ml INHALE Q6H PRN PRN Reason: shortness of breath Aripiprazole (Aripiprazole 15 Mg Tablet) 15 mg PO DAILY [facility] Last Admin: 11/14/23 08:47 Dose: 15 mg Aspirin (Aspirin Enteric Coated 81 Mg Tablet.Dr) 81 mg PO DAILY [facility] Last Admin: 11/14/23 08:47 Dose: 81 mg Atorvastatin Calcium (Atorvastatin Calcium 10 Mg Tablet) 10 mg PO DAILY [facility] Last Admin: 11/14/23 08:46 Dose: 10 mg Budesonide (Budesonide 180 Mcg Aer.Pow.Ba) 2 puff INHALE RBID [facility] Last Admin: 11/14/23 08:50 Dose: 2 puff Clonazepam (Clonazepam 0.5 Mg Tablet) 0.5 mg PO BID PRN PRN Reason: moderate, anxiety Last Admin: 11/13/23 21:03 Dose: 0.5 mg Fluphenazine HCl (Fluphenazine Hcl 5 Mg Tablet) 10 mg PO BID [facility] Last Admin: 11/14/23 08:47 Dose: 10 mg Guaifenesin (Guaifenesin La 600 Mg Tab.Er.12h) 600 mg PO BID [facility] Last Admin: 11/14/23 08:46 Dose: 600 mg Lacosamide (Lacosamide 100 Mg Tablet) 200 mg PO DAILY [facility] Last Admin: 11/14/23 08:48 Dose: 200 mg Loratadine (Loratadine 10 Mg Tablet) 10 mg PO DAILY PRN PRN Reason: allergy sx Magnesium Hydroxide (Milk Of Magnesia 30 Ml Oral.Susp) 30 ml PO DAILY PRN PRN Reason: Constipation Last Admin: 11/06/23 08:50 Dose: 30 ml Melatonin (Melatonin 3 Mg Tablet) 3 mg PO BEDTIME [facility] Last Admin: 11/13/23 21:03 Dose: 3 mg Multivitamins/Vitamin C (Multivitamin Tablet) 1 tab PO DAILY [facility] Last Admin: 11/14/23 08:46 Dose: 1 tab Senna/Docusate Sodium (Sennosides/Docusate Sodium Tablet) 1 tab PO BID [facility] Last Admin: 11/14/23 08:46 Dose: 1 tab Trazodone HCl (Trazodone Hcl 50 Mg Tablet) 50 mg PO BEDTIME MRX1 PRN PRN Reason: Insomnia Last Admin: 11/07/23 21:54 Dose: 50 mg Valsartan (Valsartan 80 Mg Tablet) 80 mg PO DAILY [facility]; Protocol Last Admin: 11/14/23 08:47 Dose: 80 mg Allergies Allergies Allergy/AdvReac Type Severity Reaction Status Date / Time amoxicillin Allergy Mild Diarrhea Verified 11/01/23 16:18 azithromycin Allergy Diarrhea Verified 11/01/23 16:19 propranolol Allergy Itching Verified 11/01/23 16:22 [email or web address] Allergy Itching Verified 11/01/23 16:22 Assessment & Plan Assessment & Plan (1) Schizophrenia, paranoid: Status: Acute Code(s): F20.0 - Paranoid schizophrenia Plan Ms. Jimenez is a 63 year-old woman with hx of paranoid schizophrenia who is having increase paranoid delusions, no aggression or suicidality. She does take medications consistently but given that she is currently not connected with psychiatrist and is in need of med adjustments she was admitted voluntarily to the psychiatric unit. We discussed risks, benefits and alternative treatment options, discussed taper off venlafaxine as it will worsen psychosis and delusions. She is on high dose of prolixin 20mg po daily. She apparently has hx of TD, on [place], currently not taking it as it is not on formulary. Noted resting tremor on right hand, some mild perioral involuntary movement. PLAN 1. Admit to S1, CV, 1:1 due to oxygen 2. continue abilify 20mg po daily and continues prolixin 10mg po BID. 11/11/2023 Continue plan of care patient on oxygen cooperative calm on exam hoping to taper down on oxygen this has been a very relatively new requirement 11/12/2023 Patient relatively stable chronically hallucinating but does not seem overly agitated continue plan of care 11/13 continue tx. Reason for continued inpatient stay Substantial Risk for: stable for discharge Time Spent With Patient Time: Total time managing care of this patient today ____ minutes.
[2023-11-14 18:00] VITALS: BP 174/58; PULSE 71; RESP 18; TEMP 36.3; O2SAT 97
[2023-11-14] MEDS: clonazePAM 0.5 MG TABLET PO (19:47)
[2023-11-14] MEDS: Melatonin 3 MG TABLET PO (19:48)
[2023-11-15 07:59] VITALS: BP 152/70; PULSE 61; RESP 17; TEMP 36; O2SAT 99
[2023-11-15] MEDS: Lacosamide 100 MG TABLET 200 MG PO (08:01)
[2023-11-15] MEDS: Atorvastatin Calcium 10 MG TABLET PO (08:01)
[2023-11-15] MEDS: Aspirin Enteric Coated 81 MG TABLET.DR PO (08:01)
[2023-11-15] MEDS: Valsartan 80 MG TABLET PO (08:02)
[2023-11-15] MEDS: Multivitamin TABLET 1 TAB PO (08:02)
[2023-11-15] MEDS: fluPHENAZine HCl 5 MG TABLET 10 MG PO ×2 (08:02→21:34)
[2023-11-15] MEDS: guaiFENesin LA 600 MG TAB.ER.12H PO ×2 (08:02→21:34)
[2023-11-15] MEDS: ARIPiprazole 15 MG TABLET PO (08:02)
[2023-11-15] MEDS: Sennosides/Docusate Sodium TABLET 1 TAB PO ×2 (08:02→21:34)
[2023-11-15] MEDS: Budesonide 180 MCG AER.POW.BA 2 PUFF INHALE ×2 (08:05→21:34)
--- NOTE | 2023-11-15 09:41 | HO.PSYCHPN ---
Subjective Subjective Date of Service: 11/15/23 Reason For Visit: Schizophrenia Subjective Notes: Conditional Voluntary Interim History: Pt slept through the night. Pt social and visible on the unit. He denies SI/HI. Less paranoid delusions. No SI/HI. Taking medications as prescribed. Medication Compliance: Yes Side effects from medications: No Review of Systems Review of Systems Pt denies chest pain. She is on oxygen, no SOB or wheezing Denies constipation or loose stools. No abdominal pain. No changes in vision. Mental Status Exam Mental Status Exam Narrative: Appearance: wearing casual clothing, good hygiene, in NAD Behavior: cooperative and friendly Psychomotor: no agitation or retardation noted. Speech: clear, normal rate/rhythm/volume, spontaneous TP: tangential at times TC: concern about her neighbors trying to hurt her but with the reassurance that mother nature protects her. Mood: good Affect:congruent, brightens up at times SI: denies HI: none VH/AH: hearing voices of mother nature Delusions: paranoid delusions Insight/judgment: improving x2 Memory/cog: alert, oriented x 3. Diagnostics Vital Signs (24Hr): Vital Signs - 24 hr 11/14/23 18:00 11/15/23 07:59 Temperature 97.4 F 96.8 F Pulse Rate 71 61 Respiratory Rate 18 17 Blood Pressure 174/58 H 152/70 H Pulse Oximetry 97 99 Oxygen Delivery Method Nasal Cannula Nasal Cannula Oxygen Flow Rate 2 BMI result Body Mass Index 29.9 Labs 11/02/23 08:48 Imaging Radiology Impressions: ITS Impressions Chest X-Ray 11/01/23 18:22 IMPRESSION: Right lower lobe atelectasis and/or pneumonia. Follow-up to resolution is suggested. Medications Medications Current Medications Acetaminophen (Acetaminophen 325 Mg Tablet) 650 mg PO Q6H PRN PRN Reason: Headache/Pain Mild Scale (1-3) Al Hydroxide/Mg Hydroxide (Magnesium Hydrox/Alum Hydrox 30 Ml Oral.Susp) 30 ml PO Q6H PRN PRN Reason: Heartburn/Nausea Albuterol/Ipratropium (Albuterol/Iprat 2.5/0.5mg 3 Ml Ampul.Neb) 3 ml INHALE Q6H PRN PRN Reason: shortness of breath Aripiprazole (Aripiprazole 15 Mg Tablet) 15 mg PO DAILY [facility] Last Admin: 11/15/23 08:02 Dose: 15 mg Aspirin (Aspirin Enteric Coated 81 Mg Tablet.Dr) 81 mg PO DAILY [facility] Last Admin: 11/15/23 08:01 Dose: 81 mg Atorvastatin Calcium (Atorvastatin Calcium 10 Mg Tablet) 10 mg PO DAILY [facility] Last Admin: 11/15/23 08:01 Dose: 10 mg Budesonide (Budesonide 180 Mcg Aer.Pow.Ba) 2 puff INHALE RBID [facility] Last Admin: 11/15/23 08:05 Dose: 2 puff Clonazepam (Clonazepam 0.5 Mg Tablet) 0.5 mg PO BID PRN PRN Reason: moderate, anxiety Last Admin: 11/14/23 19:47 Dose: 0.5 mg Fluphenazine HCl (Fluphenazine Hcl 5 Mg Tablet) 10 mg PO BID [facility] Last Admin: 11/15/23 08:02 Dose: 10 mg Guaifenesin (Guaifenesin La 600 Mg Tab.Er.12h) 600 mg PO BID [facility] Last Admin: 11/15/23 08:02 Dose: 600 mg Lacosamide (Lacosamide 100 Mg Tablet) 200 mg PO DAILY [facility] Last Admin: 11/15/23 08:01 Dose: 200 mg Loratadine (Loratadine 10 Mg Tablet) 10 mg PO DAILY PRN PRN Reason: allergy sx Magnesium Hydroxide (Milk Of Magnesia 30 Ml Oral.Susp) 30 ml PO DAILY PRN PRN Reason: Constipation Last Admin: 11/06/23 08:50 Dose: 30 ml Melatonin (Melatonin 3 Mg Tablet) 3 mg PO BEDTIME [facility] Last Admin: 11/14/23 19:48 Dose: 3 mg Multivitamins/Vitamin C (Multivitamin Tablet) 1 tab PO DAILY [facility] Last Admin: 11/15/23 08:02 Dose: 1 tab Senna/Docusate Sodium (Sennosides/Docusate Sodium Tablet) 1 tab PO BID [facility] Last Admin: 11/15/23 08:02 Dose: 1 tab Trazodone HCl (Trazodone Hcl 50 Mg Tablet) 50 mg PO BEDTIME MRX1 PRN PRN Reason: Insomnia Last Admin: 11/07/23 21:54 Dose: 50 mg Valsartan (Valsartan 80 Mg Tablet) 80 mg PO DAILY [facility]; Protocol Last Admin: 11/15/23 08:02 Dose: 80 mg Allergies Allergies Allergy/AdvReac Type Severity Reaction Status Date / Time amoxicillin Allergy Mild Diarrhea Verified 11/01/23 16:18 azithromycin Allergy Diarrhea Verified 11/01/23 16:19 propranolol Allergy Itching Verified 11/01/23 16:22 [email or web address] Allergy Itching Verified 11/01/23 16:22 Assessment & Plan Assessment & Plan (1) Schizophrenia, paranoid: Status: Acute Code(s): F20.0 - Paranoid schizophrenia Plan Ms. Jimenez is a 63 year-old woman with hx of paranoid schizophrenia who is having increase paranoid delusions, no aggression or suicidality. She does take medications consistently but given that she is currently not connected with psychiatrist and is in need of med adjustments she was admitted voluntarily to the psychiatric unit. We discussed risks, benefits and alternative treatment options, discussed taper off venlafaxine as it will worsen psychosis and delusions. She is on high dose of prolixin 20mg po daily. She apparently has hx of TD, on [place], currently not taking it as it is not on formulary. Noted resting tremor on right hand, some mild perioral involuntary movement. PLAN 1. Admit to S1, CV, 1:1 due to oxygen 2. continue abilify 20mg po daily and continues prolixin 10mg po BID. 11/11/2023 Continue plan of care patient on oxygen cooperative calm on exam hoping to taper down on oxygen this has been a very relatively new requirement 11/12/2023 Patient relatively stable chronically hallucinating but does not seem overly agitated continue plan of care 11/13 continue tx. 11/14 continue tx. Reason for continued inpatient stay Substantial Risk for: stable for discharge Time Spent With Patient Time: Total time managing care of this patient today ____ minutes.
[2023-11-15 18:00] VITALS: BP 120/57; PULSE 68; RESP 18; TEMP 36.5
[2023-11-15] MEDS: Melatonin 3 MG TABLET PO (21:34)
[2023-11-15] MEDS: traZODone HCL 50 MG TABLET PO (21:34)
[2023-11-15] MEDS: clonazePAM 0.5 MG TABLET PO (21:49)
[2023-11-16 06:00] VITALS: BP 155/68; PULSE 63; RESP 16; TEMP 36.1; O2SAT 98
[2023-11-16] MEDS: Multivitamin TABLET 1 TAB PO (08:33)
[2023-11-16] MEDS: Budesonide 180 MCG AER.POW.BA 2 PUFF INHALE (08:33)
[2023-11-16] MEDS: fluPHENAZine HCl 5 MG TABLET 10 MG PO (08:33)
[2023-11-16] MEDS: Aspirin Enteric Coated 81 MG TABLET.DR PO (08:33)
[2023-11-16] MEDS: guaiFENesin LA 600 MG TAB.ER.12H PO (08:33)
[2023-11-16] MEDS: Valsartan 80 MG TABLET PO (08:34)
[2023-11-16] MEDS: ARIPiprazole 15 MG TABLET PO (08:34)
[2023-11-16] MEDS: Lacosamide 100 MG TABLET 200 MG PO (08:34)
[2023-11-16] MEDS: Atorvastatin Calcium 10 MG TABLET PO (08:35)
[2023-11-16 08:53] VITALS: BMI 30.4
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
[2023-11-16] MEDS: Sennosides/Docusate Sodium TABLET 1 TAB PO (09:41)
[2023-11-16] MEDS: clonazePAM 0.5 MG TABLET PO (10:01)
== END 2023-11-16 10:15 | disposition home or self-care (01) | DRG 885 ==
PROVIDERS: Social Worker; Admitting Provider Psychiatry & Neurology Psychiatry; Visit Provider Psychiatry & Neurology Psychiatry
DX: F20.0 Paranoid schizophrenia (principal); J96.11 Chronic respiratory failure with hypoxia; J44.9 Chronic obstructive pulmonary disease, unspecified; F17.210 Nicotine dependence, cigarettes, uncomplicated; E78.5 Hyperlipidemia, unspecified; I10 Essential (primary) hypertension; Z99.81 Dependence on supplemental oxygen; Z71.6 Tobacco abuse counseling; Z79.899 Other long term (current) drug therapy
CPT/HCPCS: 36415; 71046; 80053; 80061; 82607; 82746; 83036; 84443

== ENCOUNTER → 2023-11-01 15:27 | Outpatient (BNV) | payer MEDICARE, SELFPAY | PROVIDERS: Admitting Provider Psychiatry & Neurology Psychiatry; Visit Provider Social Worker | DX: F20.0 Paranoid schizophrenia (principal) | CPT/HCPCS: 90792; 99231; 99232; 99238 ==

== ENCOUNTER → 2023-11-01 15:27 | Outpatient (BNV) | payer MEDICARE, SELFPAY | PROVIDERS: Admitting Provider Psychiatry & Neurology Psychiatry; Visit Provider Physician Assistant | DX: Z02.2 Encounter for examination for admission to residential institution (principal) | CPT/HCPCS: 99429 ==

== ENCOUNTER → 2023-11-01 15:27 | Outpatient (BNV) | payer MEDICARE, SELFPAY | PROVIDERS: Admitting Provider Psychiatry & Neurology Psychiatry; Visit Provider Psychiatry & Neurology Psychiatry | DX: F20.0 Paranoid schizophrenia (principal) | CPT/HCPCS: 99231 ==